=== PATIENT | male | born 1935 | race Caucasian/White ===

== ENCOUNTER → 2020-09-03 11:20 | Outpatient (BNVA) | payer MEDICARE, SELFPAY | PROVIDERS: PCP Family Medicine; Visit Provider Nurse Practitioner Family | DX: R19.8 Other specified symptoms and signs involving the digestive system and abdomen (principal); R19.7 Diarrhea, unspecified | CPT/HCPCS: 83630; 87506 ==

== ENCOUNTER 2020-10-06 09:50 | Outpatient (CLI) | payer MEDICARE, SELFPAY ==
--- NOTE | 2020-10-06 10:45 | FL_ITS ---
WS: [id number] Exam: FL barium enema [id number] Date/Time of Exam: 10/06/2020 11:39 AM Reason For Exam: R19.4 - Change in bowel habit Preliminary survey of the abdomen shows no acute process. 1 x 3 mm calcification superimposing left k idney that could represent a small renal stone. The colon fills to the cecum. Barium could not be refluxed into the terminal ileum. There was no sign of colonic mass or constricting lesion. There is mild diverticulosis and spasm of the sigmoid colon. The haustral pattern is otherwise well maintained. The appendix fills with barium. The colon is not displaced. FL/FL barium enema [id number] IMPRESSION: 1. No sign of colonic mass or constricting lesion. 2. Mild diverticulosis and spasm of the sigmoid colon. 3. The appendix fills.
== END 2020-10-06 09:51 | disposition home or self-care (01) ==
PROVIDERS: PCP Family Medicine; Visit Provider Surgery
DX: R19.4 Change in bowel habit (principal); K57.90 Diverticulosis of intestine, part unspecified, without perforation or abscess without bleeding; K58.9 Irritable bowel syndrome, unspecified
CPT/HCPCS: 74270

== ENCOUNTER → 2022-06-21 13:24 | Outpatient (BNVA) | payer MEDICARE, SELFPAY | PROVIDERS: PCP Family Medicine; Visit Provider Internal Medicine Cardiovascular Disease | DX: R55 Syncope and collapse (principal); I73.9 Peripheral vascular disease, unspecified; R03.0 Elevated blood-pressure reading, without diagnosis of hypertension; R42 Dizziness and giddiness | CPT/HCPCS: 93270; 99213; 99214 ==

== ENCOUNTER → 2022-06-23 13:59 | Outpatient (BNVA) | payer MEDICARE, SELFPAY | PROVIDERS: PCP Family Medicine; Visit Provider Family Medicine | DX: G56.02 Carpal tunnel syndrome, left upper limb (principal); M25.532 Pain in left wrist; N40.1 Benign prostatic hyperplasia with lower urinary tract symptoms; M48.061 Spinal stenosis, lumbar region without neurogenic claudication; R39.11 Hesitancy of micturition; M79.605 Pain in left leg; R29.898 Other symptoms and signs involving the musculoskeletal system | CPT/HCPCS: 73110 ==

== ENCOUNTER → 2022-08-26 12:10 | Outpatient (BNVA) | payer MEDICARE, MEDICAID, SELFPAY | PROVIDERS: PCP Family Medicine; Referring Provider Family Medicine; Visit Provider Specialist | DX: M48.061 Spinal stenosis, lumbar region without neurogenic claudication (principal); M48.02 Spinal stenosis, cervical region | CPT/HCPCS: 95910; 95912 ==

== ENCOUNTER 2022-10-21 06:00 | Outpatient (RCR) | payer MEDICARE, MEDICAID, SELFPAY | END 2022-11-09 23:59 | disposition home or self-care (01) | LOC: MPT 06:00 | PROVIDERS: PCP Family Medicine; Visit Provider Student in an Organized Health Care Education/Training Program | DX: M54.50 Low back pain, unspecified (principal) | CPT/HCPCS: 97110; 97140; 97162; G0283 ==

== ENCOUNTER 2022-11-01 11:35 | Emergency (ER) | payer MEDICARE, MEDICAID, SELFPAY ==
--- NOTE | 2022-11-01 11:45 | ECG_ITS ---
[facility] Test Date: 2022-11-01 Pat Name: Adam Monsalve Department: Room: Gender: Male Groundhand: : 1935 Requested By: Edwin Burns Order Number: [id number] Sully MD: Derek Alvarez M.D. Measurements Intervals [place] Rate: 94 P: 71 RI: 112 QRS: -89 QRSD: 101 T: 69 QT: 344 QTc: 430 Interpretive Statements SINUS RHYTHM WITH SHORT RI INTERVAL WITH OCCASIONAL ECTOPIC PREMATURE COMPLEXES INDETERMINATE AXIS NONSPECIFIC ST & T-WAVE ABNORMALITY INTERPRETATION BASED ON A DEFAULT AGE OF 40 YEARS Compared to ECG 06/16/2015 13:16:09 Short RI interval now present Indeterminate axis now present T-wave abnormality now present Electronically Signed On 11-01-2022 19:07:59 ASSOCIATE PROFESSOR OF COUNSELING by Derek Alvarez M.D. [email or web address].Spodly/store/NU/[id number] f
[2022-11-01 11:47] VITALS: BP 147/76; PULSE 94; RESP 16; TEMP 37.4; O2SAT 94
--- NOTE | 2022-11-01 11:49 | XR_ITS ---
WS: [id number] Exam: XR knee LT 3V* [id number] Date/Time of Exam: 11/01/2022 11:49 AM Reason For Exam: fall No acute fracture or dislocation. No joint effusion. 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 Mild c hondrocalcinosis of the lateral meniscus. XR/XR knee LT 3V* [id number] IMPRESSION: 1. No fracture or joint effusion. 2. Mild degenerative changes and osteopenia.
--- NOTE | 2022-11-01 11:50 | XR_ITS ---
WS: [id number] Exam: XR chest 1V portable [id number] Date/Time of Exam: 11/01/2022 11:50 AM Reason For Exam: chest pain No priors. The lungs are fully inflated and clear. Normal cardiomediastinal silhouette. No pleural effusions. Ray [place] structures are intact. There has been excision of the distal right clavicle. Rotator cuff anchorin g screws in the right humeral head. XR/XR chest 1V portable [id number] IMPRESSION: 1. No acute cardiopulmonary finding.
--- NOTE | 2022-11-01 12:08 | ED_ITS ---
HPI - Fall General: Chief Complaint: Fall Stated Complaint: fall/chest pain Time Seen by Provider: 11/01/22 11:49 Source: patient Mode of arrival: ambulatory History of Present Illness: 87-year-old male comes in complaining of fall 1 week ago pain in his left knee. He also has some chest discomfort radiating to his back is worse with movement. Has increasing pain denies abdominal or chest pain no dysuria urgency or frequency. MD complaint: fall Onset (ago): day(s) Fall from: standing Place fall occurred: home Loss of consciousness: None Prolonged down time: no Context: tripped/slipped Location of injury: head and back Location of injury - extremities: Left: knee Severity: moderate Associated symptoms-after fall: Denies abdominal pain, chest pain, confusion, difficulty walking, headache(s), hematuria, lightheadedness, neck pain, numbness, short of breath, vertigo or weakness Review of Systems Const: Denies: fever(s), chills, body aches, change in appetite, fatigue or malaise ENMT: Denies: throat pain, ear or mastoid pain, nasal discharge or nasal congestion Card: Denies: chest pain or lightheadedness Resp: Denies: dyspnea, productive cough or non-productive cough GI: Denies: abdominal pain, nausea or vomiting : Denies: hematuria Musc: Reports: back pain and extremity swelling (chronic); Denies: neck pain Skin/Breast: Denies: rash or pruritus Neuro: Denies: headache(s), difficulty walking, vertigo or confusion PFSH ED PFSH: Medical History Change in bowel habits Chronic fatigue Insomnia Spinal stenosis of lumbar region Surgical History H/O rotator cuff surgery RIGHT History of colonoscopy with polypectomy (~1997) Family History Denies family history of Diabetes CAD (coronary artery disease) Hyperlipidemia Cancer Hypertension Social History Smoking and tobacco status: current every day smoker cigarettes Packs smoked per day: 0.5 Alcohol intake: current Desire information about substance/drug rehabilitation?: No Current gender identity: Male Physical Exam Const: GENERAL APPEARANCE: cooperative and comfortable ORIENTATION/CONSCIOUSNESS: Yes awake, Yes oriented to person, Yes oriented to place and Yes oriented to time HENMT: COMMON NORMALS: normocephalic and hearing grossly normal bilaterally HEAD & SCALP: normocephalic Resp: COMMON NORMALS: normal respiratory effort, No retractions, No use of accessory muscles and clear to auscultation bilaterally AUSCULTATION: clear to auscultation bilaterally Cardio: COMMON NORMALS: regular rate, regular rhythm and No murmurs present (Cardio) RATE: regular rate RHYTHM: regular rhythm GI: COMMON NORMALS: Soft to palpation and No hepatosplenomegaly present AUSCULTATION: Yes normoactive bowel sounds PALPATION: Yes Soft to palpation, No Tenderness to palpation present (GI), No Guarding due to palpation present (GI) and Yes No hepatosplenomegaly present Extremity: COMMON NORMALS: normal to inspection, capillary refill normal, no clubbing, cyanosis or edema, no calf tenderness and no pedal edema Neuro: SENSORIUM/ORIENTATION: Yes oriented to person, Yes oriented to place and Yes oriented to time Skin: COMMON NORMALS: no rashes or lesions noted GENERAL SKIN EXAM: no rashes or lesions noted Course Vital Signs: Vital signs: Vital Signs Temperature 99.3 F 11/01/22 11:47 Pulse Rate 81 11/01/22 13:57 Respiratory Rate 16 11/01/22 13:57 Blood Pressure 127/87 11/01/22 13:57 Pulse Oximetry 100 11/01/22 13:57 MDM - Fall Medical Decision Making Labs and imaging reviewed. Old records reviewed as well patient has some spinal stenosis. No acute findings on imaging. Labs unremarkable. We will discharge patient home have him follow-up with primary care remaining outpatient MRI Medical Records I reviewed the patient's medical records. Lab Data I reviewed the patient's lab results. 11/01/22 12:09 11/01/22 12:09 Radiology Impressions Knee X-Ray 11/01/22 11:49 IMPRESSION: 1. No fracture or joint effusion. 2. Mild degenerative changes and osteopenia. Chest X-Ray 11/01/22 11:50 IMPRESSION: 1. No acute cardiopulmonary finding. Lumbar Spine X-Ray 11/01/22 12:17 IMPRESSION: 1. No acute fracture or malalignment. 2. Degenerative changes and mild scoliosis. Laboratory Results WBC 11.9 10^3/uL (4.0-10.0) H 11/01/22 12:09 RBC 4.80 10^6/uL (4.1-5.3) 11/01/22 12:09 Hgb 15.5 g/dL (11.7-16.6) 11/01/22 12:09 Hct 46.9 % (42.0-52.0) 11/01/22 12:09 MCV 97.7 fl (80-94) H 11/01/22 12:09 MCH 32.3 pg (28.0-34.0) 11/01/22 12:09 MCHC 33.0 g/dL (30.0-36.0) 11/01/22 12:09 RDW 12.6 % (12.1-15.1) 11/01/22 12:09 Plt Count 297 10^3/cmm (130-400) 11/01/22 12:09 MPV 8.9 fL (7.4-10.4) 11/01/22 12:09 Neut % (Auto) 81.4 % 11/01/22 12:09 Lymph % (Auto) 9.1 % 11/01/22 12:09 Bos[place] % (Auto) 7.6 % 11/01/22 12:09 Eos % (Auto) 0.3 % 11/01/22 12:09 Baso % (Auto) 0.4 % 11/01/22 12:09 Neut # (Auto) 9.70 10^3/uL (1.8-7.7) H 11/01/22 12:09 Lymph # (Auto) 1.1 10^3/uL (0.8-4.8) 11/01/22 12:09 [place] # (Auto) 0.9 10^3/uL (0.2-0.9) 11/01/22 12:09 Eos # (Auto) 0.0 10^3/uL (0.0-0.8) 11/01/22 12:09 Baso # (Auto) 0.1 10^3/uL (0.0-0.1) 11/01/22 12:09 Nucleated RBC % (auto) 0 % 11/01/22 12:09 Nucleated RBCs # 0.0 /100WBC 11/01/22 12:09 Sodium 138 mmol/L (136-145) 11/01/22 12:09 Potassium 4.1 mmol/L (3.5-5.1) 11/01/22 12:09 Chloride 98 mmol/L (98-107) 11/01/22 12:09 Carbon Dioxide 29 mmol/L (22-29) 11/01/22 12:09 Anion Gap 15.1 (5-19) 11/01/22 12:09 BUN 13 mg/dL (8-23) 11/01/22 12:09 Creatinine 1.0 mg/dL (0.7-1.2) 11/01/22 12:09 GFR Calculation Not Reportable 11/01/22 12:09 Glucose 137 mg/dL (65-115) H 11/01/22 12:09 Calculated Osmolality 288 mOsm/kg (285-295) 11/01/22 12:09 Calcium 9.6 mg/dL (8.5-10.5) 11/01/22 12:09 Troponin T Baseline 25 ng/L (0-15) H 11/01/22 12:09 Discharge Plan Discharge Patient Disposition: Home Clinical Impression: Spinal stenosis of lumbar region, Chronic back pain, Fall Condition: Stable Prescriptions: New diclofenac sodium 75 mg tablet,delayed release (DR/EC) 75 mg PO Q12H PRN (Reason: pain) Qty: 20 0RF Medrol (Remberto) 4 mg tablets,dose pack See Rx Instructions .ROUTE .COMPLEX Qty: 21 0RF Rx Instructions: orally per package directions No Action ascorbate calcium (vitamin C) 500 mg tablet 500 mg PO BID calcium carb-D3-mag [id number] [phone] hm-ysqh-pr-mg tablet 1 tab PO DAILY Rx Instructions: administer with a meal alpha lipoic acid 200 mg capsule 200 mg PO DAILY omega-3 fatty acids [Fish Oil Concentrate] 1,000 mg capsule 1,000 mg PO BID arginine (L-arginine) 500 mg capsule 500 mg PO DAILY tamsulosin 0.4 mg capsule 0.4 mg PO BID Rx Instructions: for urination Discharge Orders: Discharge ED (Routine); Ordered 11/01/22 Ordered By: Edwin Medeiros Referrals: Aravind Martin [Primary Care Provider] - Discharge Diet: Usual diet Discharge Activity: Limit activity as instructed Patient Instructions: Opioid Safety, Pain Management Activity Restrictions/Additional Instructions: You were seen today after a fall plain x-rays did not show any acute fractures no other significant findings on exam. I suspect that your back pain is an acute exacerbation of your chronic problem use the medications given today and follow-up with your primary care doctor continue physical therapy. Coding Level of Care Code ED Air Valve Repairer for Fátima Matta
[2022-11-01 12:16] LABS: Basophils # 0.1 10^3/uL (0.0-0.1); Basophils % 0.4 %; Eosinophils % 0.3 %; Hematocrit 46.9 % (42.0-52.0); Hemoglobin 15.5 g/dL (11.7-16.6); Lymphocytes # 1.1 10^3/uL (0.8-4.8); Lymphocytes % 9.1 %; Mean Corpuscular Hemoglobin 32.3 pg (28.0-34.0); Mean Corpuscular Volume 97.7 fl (80-94); Mean Platelet Volume 8.9 fL (7.4-10.4); Monocytes # 0.9 10^3/uL (0.2-0.9); Monocytes % 7.6 %; Neutrophils % 81.4 %; Nucleated Red Blood Cells % 0 %; Platelet Count 297 10^3/cmm (130-400); Red Cell Distribution Width 12.6 % (12.1-15.1); White Blood Count 11.9 10^3/uL (4.0-10.0)
--- NOTE | 2022-11-01 12:17 | XR_ITS ---
WS: [id number] Exam: XR lumbar spine 2-3V* [id number] Date/Time of Exam: 11/01/2022 12:17 PM Reason For Exam: fall low back pain No acute fracture or dislocation noted. Spondylosis. Degenerative facet change at L4-5 and L5-S1. Mil d levoscoliosis. Osteopenia. XR/XR lumbar spine 2-3V* [id number] IMPRESSION: 1. No acute fracture or malalignment. 2. Degenerative changes and mild scoliosis.
[2022-11-01 12:35] LABS: Troponin(5th) Baseline 25 ng/L (0-15)
[2022-11-01 12:36] LABS: Anion Gap 15.1 (5-19); Blood Urea Nitrogen 13 mg/dL (8-23); Calcium 9.6 mg/dL (8.5-10.5); Carbon Dioxide 29 mmol/L (22-29); Chloride 98 mmol/L (98-107); Glucose 137 mg/dL (65-115); Osmolality Calculated 288 mOsm/kg (285-295); Potassium 4.1 mmol/L (3.5-5.1); Sodium 138 mmol/L (136-145)
[2022-11-01 12:56] VITALS: BP 127/87; PULSE 81; O2SAT 100
--- NOTE | 2022-11-01 13:50 | ECG_ITS ---
[facility] Test Date: 2022-11-01 Pat Name: Adam Monsalve Department: Room: Gender: Male Insurance Specialist: : 1935 Requested By: Edwin Burns Order Number: [id number] Sully MD: Derek Alvarez M.D. Measurements Intervals [place] Rate: 69 P: 66 [place]: 127 QRS: 54 QRSD: 89 T: 76 QT: 371 QTc: 400 Interpretive Statements SINUS RHYTHM Compared to ECG 06/16/2015 13:16:09 No significant changes Electronically Signed On 11-01-2022 19:17:13 HOSPITALITY JOB TITLES by Derek Alvarez M.D. [email or web address]/OM/[id number]
[2022-11-01 13:57] VITALS: BP 127/87; PULSE 81; RESP 16; O2SAT 100
== END 2022-11-01 14:02 | disposition home or self-care (01) ==
PROVIDERS: Emergency Provider Family Medicine; PCP Family Medicine
DX: M48.061 Spinal stenosis, lumbar region without neurogenic claudication (principal); G89.29 Other chronic pain; F17.210 Nicotine dependence, cigarettes, uncomplicated; W19.XXXA Unspecified fall, initial encounter
CPT/HCPCS: 71045; 72100; 73562; 80048; 84484; 85025; 93005; 99285

== ENCOUNTER 2022-11-10 06:00 | Outpatient (RCR) | payer MEDICARE, MEDICAID, SELFPAY | END 2022-12-10 23:59 | disposition home or self-care (01) | LOC: MPT 06:00 | PROVIDERS: PCP Family Medicine; Visit Provider Student in an Organized Health Care Education/Training Program | DX: M54.50 Low back pain, unspecified (principal) | CPT/HCPCS: 97110; 97140; G0283 ==

== ENCOUNTER → 2022-11-23 12:55 | Outpatient (BNVA) | payer MEDICARE, MEDICAID, SELFPAY | PROVIDERS: PCP Family Medicine; Referring Provider Family Medicine; Visit Provider Orthopaedic Surgery | DX: M48.061 Spinal stenosis, lumbar region without neurogenic claudication (principal); M43.9 Deforming dorsopathy, unspecified; M54.6 Pain in thoracic spine | CPT/HCPCS: 72070; 72110; 99204 ==

== ENCOUNTER 2022-11-29 13:15 | Outpatient (CLI) | payer MEDICARE, MEDICAID, SELFPAY ==
--- NOTE | 2022-11-29 13:45 | MR_ITS ---
WS: [id number] MRI LUMBAR SPINE NONCONTRAST TECHNIQUE: Sagittal T1, T2 and STIR imaging. Axial T1 and T2 imaging. CLINICAL INFORMATION: stenosis COMPARISON: None. FINDINGS: Acute compression with anterior wedging at T7 as described on the thoracic spine MRI. Markedly enlarg ed prostate measuring 4.6 x 4.1 CM. Recommend correlation PSA. L1-L2: Mild facet arthropathy. Minimal disc bulging. Spinal canal and foramen are patent. L2-L3: Mild annular bulging. Impingement traversing RIGHT L3 nerve root in the subarticular recess. M ild facet arthropathy. RIGHT foraminal protrusion with mild RIGHT foraminal narrowing. Mild central c anal stenosis. Mild facet arthropathy. L3-L4: Mild annular bulging with moderate to severe central canal stenosis. Impingement traversing RI GHT greater than LEFT L4 nerve roots. Mild facet arthropathy. Moderate RIGHT and mild LEFT foraminal narrowing. L4-L5: Mild disc bulging with moderate central canal stenosis. Impingement traversing L5 nerve roots bilaterally. Mild facet arthropathy. L5-S1: Mild disc osteophyte complex. Impingement traversing LEFT S1 nerve root in the subarticular re cess. Moderate facet arthropathy. Moderate LEFT foraminal narrowing. RIGHT foramen is patent. Visualized pelvic bony structures: Normal. Paravertebral soft tissues: Normal. MR/MR lumbar spine wo con* [id number] IMPRESSION: 1. Mild lumbar curve. No acute compression lumbar spine. 2. Moderate to severe central canal stenosis L3-L4 and L4-L5 with impingement on the subarticular recess bilaterally. Central canal stenosis has progressed a t L3-L4 and L4-L5 compared to previous. 3. Disc bulging L2-L3 with impingement RIGHT subarticular recess and traversin g RIGHT L3 nerve root appears slightly progressed. Mild central canal stenosis slightly progressed. 4. Mild to moderate foraminal narrowing RIGHT L2-L3, RIGHT L3-L4, bilateral L4 -L5 and LEFT L5-S1. 5. Disc bulging L5-S1 impinges the LEFT S1 nerve root in the subarticular rece ss. 6. Mild L4-L5 and L5-S1 facet synovitis. 7. Markedly enlarged prostate measuring 4.6 x 4.1 CM. Recommend correlation PS A.
--- NOTE | 2022-11-29 14:30 | MR_ITS ---
WS: [id number] MRI THORACIC SPINE WITHOUT CONTRAST TECHNIQUE: Sagittal T1, T2 and STIR imaging. Axial T2 imaging. Noncontrast imaging obtained. CLINICAL INFORMATION: compression fracture COMPARISON: None. FINDINGS: Mild thoracic kyphosis. Mild thoracic curve. Anterior wedging T7 with loss of approximately 40 percen t vertebral body height anteriorly. Associated edema consistent with acute compression. No retropulsi on. Mild disc bulging T7-T8 with a tiny central protrusion. Tiny RIGHT pericentral protrusion T9-T10. No other acute compression fractures. Normal caliber thoracic aorta. Adrenal glands are normal. Bilat eral thyroid nodules largest in the RIGHT measuring 1.5 cm. Mild spondylitic changes cervical spine. Normal paravertebral soft tissues. Moderate facet arthropathy lower thoracic spine. MR/MR thoracic spin wo con* [id number] IMPRESSION: Compression with anterior wedging T7 with loss of approximately 40 percent vert ebral body height anteriorly. Associated edema consistent with acute compressio n. No retropulsion.
== END 2022-11-29 13:16 | disposition home or self-care (01) ==
LOC: RAD 13:23
PROVIDERS: PCP Family Medicine; Visit Provider Orthopaedic Surgery
DX: M48.061 Spinal stenosis, lumbar region without neurogenic claudication (principal); M48.54XA Collapsed vertebra, not elsewhere classified, thoracic region, initial encounter for fracture; N40.0 Benign prostatic hyperplasia without lower urinary tract symptoms; M65.88 Other synovitis and tenosynovitis, other site; M51.26 Other intervertebral disc displacement, lumbar region
CPT/HCPCS: 72146; 72148

== ENCOUNTER → 2022-12-07 13:45 | Outpatient (BNVA) | payer MEDICARE, MEDICAID, SELFPAY | PROVIDERS: PCP Family Medicine; Visit Provider Orthopaedic Surgery | DX: M48.062 Spinal stenosis, lumbar region with neurogenic claudication (principal); M48.54XA Collapsed vertebra, not elsewhere classified, thoracic region, initial encounter for fracture | CPT/HCPCS: 99214 ==

== ENCOUNTER 2022-12-20 05:25 | Day surgery (SDC) | payer MEDICARE, MEDICAID, SELFPAY ==
[2022-12-15 13:07] VITALS: BMI 20.7
--- NOTE | 2022-12-15 13:29 | ANES.PREANE2 ---
Pre-Anesthetic Assessment Height/Weight: Height 1.6 m Weight 53.07 kg Operation Date: 12/20/22 09:40 Proposed Procedures p Kyphoplasty: T7 21255,: Decompression L3/4 92918, L4/5 33650(Not Applicable) - DO isabella Washington Lumbar Spine Decompression(Not Applicable) - Emanuel Rivera DO Familial anesthetic complications: None Social Tobacco and No alcohol Exam alert, oriented x 3, clear to auscultation bilaterally and regular rate & rhythm Airway Mallampati: Class II Dentition: false Pulmonary Chronic cough for months now, coughs up minimal white sputum ( less than 1/4 of tsp ) - hasn't been worked up. But states no breathing issues, no fevers. He said he had this several years ago too after he quit smoking. Suspect smoking related. Consider obtaining CXR morning of surgery to make sure no infection. CV/HEM Peripheral Vascular Disease (due to brown reculse bite) None reported GI IBS Metabolic None reported Musc/skel None reported Neuropsych None reported Anesthetic Plan ASA status: 2 Anesthesia: General Risk of > 500 ml blood loss (7ml/kg in children): No Medications/Allergies Home Medications Medication Instructions Recorded Confirmed Last Taken Type alpha lipoic acid 200 mg capsule 200 mg PO DAILY 04/22/21 12/15/22 11/01/22 History arginine (L-arginine) 500 mg 500 mg PO DAILY 04/22/21 12/15/22 11/01/22 History capsule ascorbate calcium (vitamin C) 500 500 mg PO BID 04/22/21 12/15/22 11/01/22 History mg tablet calcium carb-vit O2-chhjygwvp-wdhe 1 tab PO DAILY 04/22/21 12/15/22 11/01/22 History 333 mg-200 unit-133 mg-5 mg tablet omega-3 fatty acids 1,000 mg 1,000 mg PO BID 04/22/21 12/15/22 11/01/22 History capsule (Fish Oil Concentrate) diclofenac sodium 75 mg 75 mg PO Q12H PRN pain #20 tabs 11/01/22 12/15/22 Unknown Rx tablet,delayed release methylprednisolone 4 mg tablets in See Rx Instructions PO .COMPLEX 11/01/22 12/15/22 Unknown Rx a dose pack (Medrol (Remberto)) #21 ea tamsulosin 0.4 mg capsule 0.4 mg PO BID 11/01/22 12/15/22 11/01/22 History hydrocodone 5 mg-acetaminophen 325 1 tab PO Q8H PRN pain 7 days #21 12/07/22 12/15/22 Unknown Rx mg tablet tabs Allergies Allergy/AdvReac Type Severity Reaction Status Date / Time No Known Allergies Allergy Verified 12/07/22 14:58 PFSH Anesthesia Medical History Change in bowel habits Chronic fatigue Insomnia Spinal stenosis of lumbar region Surgical History H/O rotator cuff surgery RIGHT History of colonoscopy with polypectomy (~1997) Family History Denies family history of Diabetes CAD (coronary artery disease) Hyperlipidemia Cancer Hypertension Social History Smoking and tobacco status: current every day smoker cigarettes Packs smoked per day: 0.5 Alcohol intake: current Desire information about substance/drug rehabilitation?: No Current gender identity: Male Data Anesthesia Cardiac Studies: Cardiac Event Monitor 06/21/22
[2022-12-20] MEDS: sodium chloride 0.9% 1,000 ML 30 ML IV (06:18)
--- NOTE | 2022-12-20 06:24 | XR_ITS ---
WS: [id number] EXAMINATION: XR chest 1V portable [id number] REASON FOR EXAM: cough COMPARISON: None available. ORDER DATE: 12/20/2022 6:44 AM TECHNIQUE: A single, portable frontal chest x-ray was obtained. X-RAY FINDINGS: The lungs are clear. Pleural spaces are clear. No pleural effusions or pneumothorax. Cardiomediastinal silhouette is normal except for atherosclerotic aortic change. No evidence for pulm onary edema. Soft tissue and osseous structures are unremarkable except for distal right clavicle osteotomy and ro tator cuff anchors from prior surgery. No tubes or lines are present. XR/XR chest 1V portable [id number] IMPRESSION: Unremarkable frontal portable chest x-ray.
--- NOTE | 2022-12-20 06:30 | W.PM.OPSUD ---
Surgery/Procedure H&P Update DATE OF PROCEDURE: December 20, 2022 DATE H&P PERFORMED: 12/07/22 H&P UPDATE INFORMATION: I have reviewed H&P completed within last 30 days, I have examined patient prior to procedure and No changes to prior documentation PREOP DIAGNOSIS: T7 compression fracture, lumbar stenosis with neurogenic claudication PLANNED PROCEDURE: Operation Date: 12/20/22 07:00 Proposed Procedures p Kyphoplasty: T7 32092,: B Decompression L3/4 17767, L4/5 19113(Not Applicable) - Emanuel Rivera DO s Lumbar Spine Decompression(Not Applicable) - Emanuel Rivera DO
--- NOTE | 2022-12-20 06:33 | P.ANESUD_ITS ---
Pre-Anesthetic Update Pre-Anesthetic Assessment: Date of Surgery/Procedure: 12/20/22 Preop Glo gnosis: T7 compression fracture, lumbar stenosis with neurogenic claudication Proposed Procedure: Operation Date: 12/20/22 07:00 Proposed Procedures p Kyphoplasty: T7 54567,: B Decompression L3/4 02069, L4/5 99803(Not Applicable) - Emanueldre Rivera, DO s Lumbar Spine Decompression(Not Applicable) - Emanueldre Rivera, DO Any changes to Pre-Anesthetic Assessment?: No Last Intake: Intake Last Liquid Date 12/19/22 Last Liquid Time 21:30 Last Solid Date 12/19/22 Last Solid Time 21:30 Vitals: Oxygen Delivery Me thod 12/20/22 06:08 Exam: Pre-Anes Outpt Exam: alert, oriented x 3, clear to auscultation bilaterally and regular rate & rhythm Cardiac Studies: Cardiac Event Monitor 06/21/22
[2022-12-20] MEDS: ceFAZolin 2,000 MG in sodium chloride 0.9% (plus) 50 ML 100 MG IV (07:05)
[2022-12-20] MEDS: lidocaine-epi 2% 20 mL INJ INJECTION ×2 (07:34→07:43)
[2022-12-20] MEDS: iohexol 350 mg/mL 100 mL Btl 8 ML XX (07:40)
--- NOTE | 2022-12-20 09:02 | XR_ITS ---
WS: [id number] EXAMINATION: XR lumbar spine 1V [id number] L-SPINE : 5 views REASON FOR EXAM: OR PICS COMPARISON: None available. ORDER DATE: 12/20/2022 9:02 AM FINDINGS: There are post vertebroplasty change in one of the midthoracic vertebra. Localization with a surgical instrument is noted at the L4 level on a few C-arm views. XR/XR lumbar spine 1V 23004 IMPRESSION: Total fluoroscopy time 70 seconds
[2022-12-20 09:16] VITALS: BP 102/58; PULSE 70; RESP 17; TEMP 36.1; O2SAT 100
[2022-12-20 09:20] VITALS: BP 111/57; PULSE 67; RESP 15; O2SAT 100
[2022-12-20 09:25] VITALS: BP 103/51; PULSE 68; RESP 16; O2SAT 100
[2022-12-20 09:30] VITALS: BP 95/56; PULSE 66; RESP 19; O2SAT 100
--- NOTE | 2022-12-20 09:33 | P.OP_ITS ---
Operative Report Date of procedure: December 20, 2022 Pre-op diagnosis: Preop Diagnosis T7 wedge osteoporotic traumatic compression fracture, lumbar stenosis with neurogenic claudication Post-op diagnosis: same Procedure done: 1. T7 Kyphoplasty 2. L3/4 laminectomy with partial facetectomy 3. L4/5 laminectomy with partial facetectomy Surgeon: Emanuel Rivera Industrial Controller: none Estimated blood loss (mL): 25 Complications: dural tear L4/5 level patched Procedure: 1. T7 Kyphoplasty 2. L3/4 laminectomy with partial facetectomy 3. L4/5 laminectomy with partial facetectomy Patient is brought t the operative suite placed in the prone position orders and pressure well-padded. Attention was first brought to doing the T7 kyphoplasty. A biplanar fluoroscopy was brought in pedicles were lined up in the T7 vertebrae was identified. The skin incision was made over the left pedicle. The awl was inserted the drill was then inserted then the balloon was inserted into the vertebrae T7. Once in the center position of the vertebrae. Then the balloon was inflated deflated and then cement was injected into the vertebrae had good fill the vertebrae AP lateral fluoroscopy ensure that the cement was in good position. Wound was irrigated and closed with nylon suture. Was brought to performing the laminectomies. A skin incision is made over the L3/4 level. This is confirmed under c-arm guidance. A series of dilators are passed and the tubular retractor is docked on the L3 lamina. A bovie is used to clear the soft tissue off the lamina and the L 3/4 facet joint. A high speed antelmo is then used to perform the laminectomy and take down the medial aspect of the L 3/4 facet joint. A kerrison rongeure was then used to take down the remaining lamina and smooth the edged of the laminectomy up to the point where the ligamentum flavum attaches. Attention was then brought to the medial aspect of the facet joint. The remaining medial aspect of the superior and inferior aspect of the facet joint were taken down with the kerrison from the pedicle of L3 to L 4. The facet joint had significant hypertrophy. Attention was then brought to the Ligamentum Flavum. The ligament was taken down from the lamina of L3 to L4 and out medially to the remaining facet joint. The ligament was thick. The dura was then exposed. The dura was in good repair. The L3 nerve was then traced with a curette out the L3/4 foramen and found to be adequately decompressed. The L4 nerve was traced with a curette around the L4 pedicle. The lateral recess was opened with a kerrison helping to further decompress the L4 nerve. The tubular retractor was then tilted to the contralateral side. The bovie was used to take down the soft tissue on the spinous process. The high speed antelmo was used to take down the spinous process and then the contralateral lamina of L3. The kerrison rongeur was used to take down the remaining lamina to the point where the ligamentum flavum attached and the ligamentum flavum was taken down from L3 to L4. The kerrison rongeur was then used to reach across and take down the medial aspect of the contralateral L3/4 facet joint.The currete was used to trace the contralateral L3 nerve out the L3/4 foramen to make sure it was decompressed adequatesly and the L4 was traced around the L4 pedicle. The lateral recess was opened further with the kerrison to ensure the L4 is adequately decompressed. Wound is then irrigated copiously with saline and surgiflo is used to stop any bleeding. The tubular retractor is removed and the A skin incision is made over the L4/5 level. This is confirmed under c-arm guidance. A series of dilators are passed and the tubular retractor is docked on the L4 lamina. A bovie is used to clear the soft tissue off the lamina and the L 4/5 facet joint. A high speed antelmo is then used to perform the laminectomy and take down the medial aspect of the L 4/5 facet joint. A kerrison rongeure was then used to take down the remaining lamina and smooth the edged of the laminectomy up to the point where the ligamentum flavum attaches. Attention was then brought to the medial aspect of the facet joint. The remaining medial aspect of the superior and inferior aspect of the facet joint were taken down with the kerrison from the pedicle of L4 to L 5. The facet joint had significant hypertrophy. Attention was then brought to the Ligamentum Flavum. The ligament was taken down from the lamina of L4 to L5 and out medially to the remaining facet joint. The ligament was thick. The dura was then exposed. The dura was in good repair. The L4 nerve was then traced with a curette out the L4/5 foramen and found to be adequately decompressed. The L5 nerve was traced with a curette around the L5 pedicle. The lateral recess was opened with a kerrison helping to further decompress the L5 nerve. The tubular retractor was then tilted to the contralateral side. The bovie was used to take down the soft tissue on the spinous process. The high speed antelmo was used to take down the spinous process and then the contralateral lamina of L4. The kerrison rongeur was used to take down the remaining lamina to the point where the ligamentum flavum attached and the ligamentum flavum was taken down from L4 to L5. The kerrison rongeur was then used to reach across and take down the medial aspect of the contralateral L4/5 facet joint.The currete was used to trace the contralateral L4 nerve out the L4/5 foramen to make sure it was decompressed adequatesly and the L5 was traced around the L5 pedicle. The lateral recess was opened further with the kerrison to ensure the L5 is adequately decompressed. Patient did get a dural tear on the L4-5 level. Patch was placed there was no CSF leaking and the DuraSeal was also placed. Wound is then irrigated copiously with saline and surgiflo is used to stop any bleeding. The tubular retractor is removed and the wound is closed with vicryl and monocryl suture. Glue is then used to protect the wound. A sterile dressing is then placed. Patient was then placed in the supine position and transferred to the PACU in stable condition.
[2022-12-20 09:40] VITALS: BP 126/67; PULSE 67; RESP 16; TEMP 36.4; O2SAT 96
[2022-12-20 10:02] VITALS: BP 106/70; PULSE 67; RESP 16; O2SAT 96
--- NOTE | 2022-12-20 10:21 | PC.NURSE ---
Pt unsteady gait with ambulation. Obtained verbal order from Dr Rivera for walker. Order faxed to HOME per family request. Education provided to family and patient due to instability with ambulation.
--- NOTE | 2022-12-20 14:11 | ANE.PACU2 ---
Inpatient post-anesthesia follow up: Airway intact: Yes Vital signs: Temperature 97.5 F Pulse Rate 67 Respiratory Rate 16 Blood Pressure 106/70 Pulse Oximetry 96 Oxygen Delivery Me thod Room Air Oxygen Flow Rate 6 Fraction of Inspir ed Oxygen Hydration adequate: Yes Nausea and vomiting: No Pain level: 1 Mental status: Baseline
== END 2022-12-20 10:30 | disposition home or self-care (01) ==
PROVIDERS: PCP Family Medicine; Visit Provider Orthopaedic Surgery
PROC: (CPT 22513; principal; 2022-12-20 07:00)
PROC: (CPT 63005; 2022-12-20 07:00)
DX: M48.062 Spinal stenosis, lumbar region with neurogenic claudication (principal); S22.060A Wedge compression fracture of T7-T8 vertebra, initial encounter for closed fracture; X58.XXXA Exposure to other specified factors, initial encounter; F17.210 Nicotine dependence, cigarettes, uncomplicated
CPT/HCPCS: 22513; 63047; 63048; 71045; 72020; 72074; 76000; J0690; J1100; J2370; J2405; J2704; J2710; J3010; J3490; J7030; Q9967

== ENCOUNTER 2022-12-22 20:12 | Emergency (ER) | payer MEDICARE, MEDICAID, SELFPAY ==
[2022-12-22] VITALS (7 sets, daily range): BP systolic 127–183; BP diastolic 65–102; PULSE 73–86; RESP 16; TEMP 36.9; O2SAT 90–93; BMI 21.2
--- NOTE | 2022-12-22 21:11 | W.ED.BACK ---
HPI - Back Pain/Injury General: Chief Complaint: Back Pain/Injury Stated Complaint: BACK PAIN Time Seen by Provider: 12/22/22 20:21 Source: patient and family Mode of arrival: EMS Limitations: no limitations History of Present Illness: Patient was transported by EMS to the emergency department today because of concerns about becoming more distended decreased bowel movement decreased urine output over the last 2 to 3 days. He has not had a concomitant decreased appetite. No fevers or chills. No weakness numbness or loss of lower extremity function. He had a recent lumbar decompression as well as a kyphoplasty done at this facility. Pertinent past history: back surgery Associated symptoms: Deny chills, fever(s), nausea or vomiting Review of Systems Const: Denies: fever(s), chills or body aches Eyes: Denies: change in vision ENMT: Denies: throat pain or odynophagia Card: Denies: chest pain, palpitations or irregular heart rhythm Resp: Denies: dyspnea, productive cough or non-productive cough GI: Reports: constipation; Denies: nausea, vomiting or diarrhea : Reports: difficulty urinating and oliguria Musc: Denies: neck pain, back pain, extremity pain or extremity swelling Skin/Breast: Denies: rash or pruritus Neuro: Denies: headache(s), numbness in extremities or weakness in extremities PFSH ED PFSH: Medical History Change in bowel habits Chronic fatigue Insomnia Spinal stenosis of lumbar region Surgical History H/O rotator cuff surgery RIGHT History of colonoscopy with polypectomy (~1997) Family History Denies family history of Diabetes CAD (coronary artery disease) Hyperlipidemia Cancer Hypertension Social History Smoking and tobacco status: current every day smoker cigarettes Packs smoked per day: 0.5 Alcohol intake: current Desire information about substance/drug rehabilitation?: No Current gender identity: Male Physical Exam Narrative: EXAM NARRATIVE: Is alert. He answers questions appropriately. Const: COMMON NORMALS: no acute distress and patient oriented x3 GENERAL APPEARANCE: cooperative NUTRITIONAL APPEARANCE: thin ORIENTATION/CONSCIOUSNESS: Yes awake HENMT: COMMON NORMALS: normocephalic, Normal nasal mucous membranes and turbinates present and moist oral mucous membranes HEAD & SCALP: normocephalic NOSE: Normal nasal mucous membranes and turbinates present Eye: COMMON NORMALS: Equal, round and reactive pupils present, EOMs intact bilaterally and conjunctivae normal CONJUNCTIVA: Yes conjunctivae normal PUPIL: Yes Equal, round and reactive pupils present Neck/C-Spine: COMMON NORMALS: full ROM, no JVD and No carotid bruits Chest: COMMONS NORMALS: normal inspection of the chest Resp: COMMON NORMALS: normal respiratory effort, No retractions, No use of accessory muscles and clear to auscultation bilaterally AUSCULTATION: clear to auscultation bilaterally Cardio: COMMON NORMALS: no JVD, regular rate, regular rhythm, No murmurs present (Cardio) and Peripheral pulses 2+ throughout RATE: regular rate RHYTHM: regular rhythm PERIPHERAL PULSES: Peripheral pulses 2+ throughout GI: PALPATION: Yes Bladder palpation abnormal OTHER: Normal examination reveals distendelower abdomen from the symphysis pubis to the umbilicus. This area is tympanitic to percussion. There is no rebound or guarding on his abdominal examination. : BLADDER/KIDNEY EXAM: Yes Bladder palpation abnormal Back/Pelvis: OTHER: Examination of his back reveals no erythema no tenderness. Removal of the is dressing over his surgical site reveals no evidence of bleeding erythema drainage etc. Extremity: NARRATIVE EXTREMITY EXAM: He has a slight amount of soft tissue edema to both lower extremities. No calf tenderness. No erythema. He has intact sensation and motor function distally. Neuro: COMMON NORMALS: patient oriented x3, moves all extremities and deep tendon reflexes 2+ bilaterally Psych: COMMON NORMALS: mental status grossly normal Skin: COMMON NORMALS: no rashes or lesions noted and turgor normal GENERAL SKIN EXAM: no rashes or lesions noted and turgor normal Course Reevaluation(s): Reevaluation #1: Portable ultrasound was used to visualize urinary bladder which was noted to be markedly distended with what appeared to be clear fluid measuring an estimated approximately 6 to 700 mL. Time: 21:17 Reevaluation #2: Patient had a Monzon placed without difficulty and returned 700 mL of clear urine. He received a second liter of fluids. I discussed options to include continued observation overnight, discharged to home with continued oral hydration and close follow-up. They apparently have a appointment in command center officer with Dr. Rivera for follow-up. My plan is to leave his Monzon in situ for 48 hours and then have him remove it at home. I reviewed that procedure with both he and his his daughter and he was very comfortable with the plan as he is done that previously. No evidence of infection either of his wound site and or urine at this time but we will culture his urine to ensure there is no occult infection. He does have hematuria noted on his urinalysis but this is likely due to his bladder distention and subsequent Monzon placement and not likely indicative of infection. Time: 22:46 Vital Signs: Vital signs: Vital Signs Temperature 98.4 F 12/22/22 20:14 Pulse Rate 73 12/22/22 21:41 Respiratory Rate 16 12/22/22 22:04 Blood Pressure 155/77 12/22/22 22:04 Pulse Oximetry 91 12/22/22 22:04 Oxygen Delivery Me thod Room Air 12/22/22 21:41 MDM - Back Pain/Injury Medical Decision Making 87-year-old gentleman who is status post lumbar decompression as well as a kyphoplasty. He has subsequently developed urinary retention over the last several days which is also resulted in a obstipation constipation issue. Ultrasound of the his urinary bladder CT revealed significant distention and a Monzon was placed without difficulty. He also had evidence of volume depletion likely due to his decreased oral intake due to his bladder distention. He was rehydrated with 2 L of fluid in the emergency department. No evidence of acute infection or other concerning findings at this time. Again has bladder retention is likely postoperatively related and extremely unlikely to be related to his surgery i.e. nerve root or cauda equina compression etc. He has intact perineal sensation and no evidence of loss of sphincter tone etc. He is being discharged to home with close follow-up. Both he and his daughter were appreciative of our care evaluation and care. Labs I reviewed the patient's lab results. 12/22/22 19:39 12/22/22 19:39 Laboratory Results WBC 12.5 10^3/uL (4.0-10.0) H 12/22/22 19:39 RBC 5.11 10^6/uL (4.1-5.3) 12/22/22 19:39 Hgb 15.8 g/dL (11.7-16.6) 12/22/22 19:39 Hct 48.3 % (42.0-52.0) 12/22/22 19:39 MCV 94.5 fl (80-94) H 12/22/22 19:39 MCH 30.9 pg (28.0-34.0) 12/22/22 19:39 MCHC 32.7 g/dL (30.0-36.0) 12/22/22 19:39 RDW 12.9 % (12.1-15.1) 12/22/22 19:39 Plt Count 288 10^3/cmm (130-400) 12/22/22 19:39 MPV 9.5 fL (7.4-10.4) 12/22/22 19:39 Neut % (Auto) 78.2 % 12/22/22 19:39 Lymph % (Auto) 14.9 % 12/22/22 19:39 [place] % (Auto) 4.8 % 12/22/22 19:39 Eos % (Auto) 1.5 % 12/22/22 19:39 Baso % (Auto) 0.2 % 12/22/22 19:39 Neut # (Auto) 9.78 10^3/uL (1.8-7.7) H 12/22/22 19:39 Lymph # (Auto) 1.9 10^3/uL (0.8-4.8) 12/22/22 19:39 [place] # (Auto) 0.6 10^3/uL (0.2-0.9) 12/22/22 19:39 Eos # (Auto) 0.2 10^3/uL (0.0-0.8) 12/22/22 19:39 Baso # (Auto) 0.0 10^3/uL (0.0-0.1) 12/22/22 19:39 Nucleated RBC % (auto) 0 % 12/22/22 19: Nucleated RBCs # 0.0 /100WBC 12/22/22 19:39 Sodium 140 mmol/L (136-145) 12/22/22 19:39 Potassium 4.5 mmol/L (3.5-5.1) 12/22/22 19:39 Chloride 101 mmol/L (98-107) 12/22/22 19:39 Carbon Dioxide 27 mmol/L (22-29) 12/22/22 19:39 Anion Gap 16.5 (5-19) 12/22/22 19:39 BUN 24 mg/dL (8-23) H 12/22/22 19:39 Creatinine 1.4 mg/dL (0.7-1.2) H 12/22/22 19:39 GFR Calculation Not Reportable 12/22/22 19:39 Glucose 83 mg/dL (65-115) 12/22/22 19:39 Calculated Osmolality 293 mOsm/kg (285-295) 12/22/22 19:39 Calcium 9.4 mg/dL (8.5-10.5) 12/22/22 19:39 Total Bilirubin 0.6 mg/dL (0.15-1.2) 12/22/22 19:39 AST 24 U/L (0-40) 12/22/22 19:39 ALT 13 U/L (0-41) 12/22/22 19:39 Alkaline Phosphatase 93 U/L (40-130) 12/22/22 19:39 Total Protein 6.0 g/dL (6.6-8.7) L 12/22/22 19:39 Albumin 3.2 g/dL (3.5-5.2) L 12/22/22 19:39 Globulin 2.8 g/dL (1.3-4.6) 12/22/22 19:39 Urine Color Yellow (Yellow) 12/22/22 21:37 Urine Appearance Clear (CLEAR) 12/22/22 21:37 Urine pH 5 (5-7) 12/22/22 21:37 Ur Specific [place] 1.020 (1.005-1.030) 12/22/22 21:37 Urine Protein Neg (Negative) 12/22/22 21:37 Urine Glucose (UA) Norm (Normal) 12/22/22 21:37 Urine Ketones Negative (Negative) 12/22/22 21:37 Urine Blood 3+ (Negative) H 12/22/22 21:37 Urine Nitrate Negative (Negative) 12/22/22 21:37 Urine Bilirubin Neg (Negative) 12/22/22 21:37 Urine Urobilinogen Norm mg/dL (Negative) 12/22/22 21:37 Ur Leukocyte Esterase Negative (Negative) 04/12/23 21:37 Urine RBC 50-80 /hpf (0-2) H 12/22/22 21:37 Urine WBC 0-4 /hpf (0-5) H 12/22/22 21:37 Ur Squamous Epith Cells 0-4 /hpf (0-5) H 12/22/22 21:37 Amorphous Sediment Not Reportable 12/22/22 21:37 Urine Bacteria Trace /hpf (NONE) 12/22/22 21:37 Discharge Plan Discharge Patient Disposition: Home Clinical Impression: Acute urinary retention, Volume depletion Condition: Stable Prescriptions: No Action ascorbate calcium (vitamin C) 500 mg tablet 500 mg PO BID calcium carb-D3-mag [id number] [phone] [id number]-mg tablet 1 tab PO DAILY Rx Instructions: administer with a meal alpha lipoic acid 200 mg capsule 200 mg PO DAILY omega-3 fatty acids [Fish Oil Concentrate] 1,000 mg capsule 1,000 mg PO BID arginine (L-arginine) 500 mg capsule 500 mg PO DAILY hydrocodone-acetaminophen 5-325 mg tablet 1 tab PO Q8H PRN (Reason: pain) 7 Days Qty: 21 0RF oxycodone-acetaminophen 5-325 mg tablet 1 - 2 tab PO Q4H PRN (Reason: pain) 7 Days Qty: 40 0RF hydrocodone-acetaminophen 5-325 mg tablet 1 - 2 tab PO .Q4-6H Qty: 40 0RF tamsulosin 0.4 mg capsule 0.4 mg PO BID Rx Instructions: for urination diclofenac sodium 75 mg tablet,delayed release (DR/EC) 75 mg PO Q12H PRN (Reason: pain) Qty: 20 0RF methylprednisolone [Medrol (Remberto)] 4 mg tablets,dose pack See Rx Instructions .ROUTE .COMPLEX Qty: 21 0RF Rx Instructions: orally per package directions Discharge Orders: Discharge ED (Routine); Ordered 12/22/22 Ordered By: Tyrese Thornton Referrals: Aravind Martin [Primary Care Provider] - Discharge Diet: Advance as tolerated Discharge Activity: Limit activity as instructed Patient Instructions: Opioid Safety, Pain Management Activity Restrictions/Additional Instructions: As we discussed in the emergency department, it is important you drink at least 1-2 quarts of water daily. We have elected to leave your catheter in for 2 days to allow your bladder to continue to decompress after its distention postoperatively. As we discussed while you are in the emergency department you should use the syringe provided to remove the water from the menhaden vessel pilot balloon and then you may remove the Monzon catheter. If after 6 to 8 hours you are not able to urinate you should return to this or the nearest emergency department for reevaluation. We also recommend using 1 package of MiraLAX twice daily and water to keep your stools soft. Left with Dr. Turner on 23 December as scheduled. At any time if you develop worsening symptoms, fever cough, loss of bowel or bladder control, weakness etc. return to the emergency department immediately. Coding Level of Care Code ED Revenue Field Auditor for Fátima Matta
[2022-12-22 21:21] LABS: Basophils % 0.2 %; Eosinophils # 0.2 10^3/uL (0.0-0.8); Eosinophils % 1.5 %; Hematocrit 48.3 % (42.0-52.0); Hemoglobin 15.8 g/dL (11.7-16.6); Lymphocytes # 1.9 10^3/uL (0.8-4.8); Lymphocytes % 14.9 %; Mean Corpuscular HGB Conc 32.7 g/dL (30.0-36.0); Mean Corpuscular Hemoglobin 30.9 pg (28.0-34.0); Mean Corpuscular Volume 94.5 fl (80-94); Mean Platelet Volume 9.5 fL (7.4-10.4); Monocytes # 0.6 10^3/uL (0.2-0.9); Monocytes % 4.8 %; Neutrophils # 9.78 10^3/uL (1.8-7.7); Neutrophils % 78.2 %; Nucleated Red Blood Cells % 0 %; Platelet Count 288 10^3/cmm (130-400); Red Blood Count 5.11 10^6/uL (4.1-5.3); Red Cell Distribution Width 12.9 % (12.1-15.1); White Blood Count 12.5 10^3/uL (4.0-10.0)
[2022-12-22 21:46] LABS: Alanine Aminotransferase 13 U/L (0-41); Albumin Level 3.2 g/dL (3.5-5.2); Alkaline Phosphatase 93 U/L (40-130); Anion Gap 16.5 (5-19); Aspartate Amino Transferase 24 U/L (0-40); Blood Urea Nitrogen 24 mg/dL (8-23); Calcium 9.4 mg/dL (8.5-10.5); Carbon Dioxide 27 mmol/L (22-29); Chloride 101 mmol/L (98-107); Globulin 2.8 g/dL (1.3-4.6); Glucose 83 mg/dL (65-115); Osmolality Calculated 293 mOsm/kg (285-295); Potassium 4.5 mmol/L (3.5-5.1); Sodium 140 mmol/L (136-145); Total Bilirubin 0.6 mg/dL (0.15-1.2)
[2022-12-22 22:04] LABS: Add Urine Microscopic? YES; Bilirubin Urine Neg (Negative); Blood Urine 3+ (Negative); Glucose Urine UA Norm (Normal); Ketones Urine Negative (Negative); Leukocyte Esterase Urine Negative (Negative); Nitrate Urine Negative (Negative); Protein Urine Neg (Negative); Urine Appearance Clear (CLEAR); Urine Color Yellow (Yellow); Urobilinogen Urine Norm (Negative); pH Urine 5 (5-7)
[2022-12-22 22:05] LABS: Add Urine Culture? Yes; Bacteria Urine TRACE /hpf; RBC Urine 50-80 /hpf (0-2); Squamous Epithelial Cell Urine 0-4 /hpf (0-5); WBC Urine 0-4 /hpf (0-5)
[2022-12-22] MEDS: lactated ringers 1,000 ML 999 ML IV (22:19)
== END 2022-12-22 23:26 | disposition home or self-care (01) ==
PROVIDERS: Emergency Provider Emergency Medicine; PCP Family Medicine
DX: R33.9 Retention of urine, unspecified (principal); E86.9 Volume depletion, unspecified; F17.210 Nicotine dependence, cigarettes, uncomplicated
CPT/HCPCS: 51702; 80053; 81001; 85025; 87086; 96365; 99284; J7120

== ENCOUNTER → 2022-12-23 09:03 | Outpatient (BNVA) | payer MEDICARE, MEDICAID, SELFPAY | PROVIDERS: PCP Family Medicine; Visit Provider Orthopaedic Surgery | DX: Z47.89 Encounter for other orthopedic aftercare (principal) | CPT/HCPCS: 99024 ==

== ENCOUNTER → 2022-12-27 08:36 | Outpatient (BNVA) | payer MEDICARE, MEDICAID, SELFPAY | PROVIDERS: PCP Family Medicine; Visit Provider Orthopaedic Surgery | DX: Z47.89 Encounter for other orthopedic aftercare (principal) | CPT/HCPCS: 99024 ==

== ENCOUNTER 2022-12-28 14:12 | Emergency (ER) | payer MEDICARE, MEDICAID, SELFPAY ==
[2022-12-28 14:16] VITALS: BP 160/77; PULSE 70; RESP 17; O2SAT 96; BMI 19.8
[2022-12-28 14:19] VITALS: BP 160/77; O2SAT 95
[2022-12-28 14:30] VITALS: BP 160/77
--- NOTE | 2022-12-28 14:31 | PC.NURSE ---
Pt bowel is now loose.
--- NOTE | 2022-12-28 14:47 | W.ED.MALEGU ---
HPI - Male Genitourinary General: Chief complaint: Urogenital-Male Stated complaint: URINARY RETENTION POST OP Time Seen by Provider: 12/28/22 14:42 History of Present Illness: Patient is an 87-year-old male that comes to the ED with urinary retention. Past medical history of BPH. Patient says he has not been able to urinate since yesterday. Patient was seen here back on December 22 for same complaint. He states that he had his Monzon catheter in place and it was removed approximately 2 days ago. Yesterday evening use able to dribble out a little bit of urine and today he is feeling bladder pain and pressure and is only able to dribble out a little bit of urine as well. Denies any other symptoms. Associated symptoms: Deny dysuria, hematuria, nausea or vomiting Review of Systems Const: Denies: fever(s), chills or fatigue Eyes: Denies: change in vision or eye discomfort ENMT: Denies: throat pain, odynophagia, nasal discharge or nasal congestion Card: Denies: chest pain, palpitations, edema, swelling of feet/ankles, dyspnea on exertion or orthopnea Resp: Denies: dyspnea, productive cough or non-productive cough GI: Denies: abdominal pain, nausea, vomiting, diarrhea, constipation or hematochezia : Reports: difficulty urinating (Unable to urinate.); Denies: flank pain, dysuria or hematuria Musc: Denies: neck pain, back pain or extremity swelling Skin/Breast: Denies: rash or new lesions Neuro: Denies: headache(s), numbness in extremities or weakness in extremities PFS ED PFSH: Medical History Change in bowel habits Chronic fatigue Insomnia Spinal stenosis of lumbar region Surgical History H/O rotator cuff surgery RIGHT History of colonoscopy with polypectomy (~1997) Family History Denies family history of Diabetes CAD (coronary artery disease) Hyperlipidemia Cancer Hypertension Social History Smoking and tobacco status: current every day smoker cigarettes Packs smoked per day: 0.5 Alcohol intake: current Desire information about substance/drug rehabilitation?: No Current gender identity: Male Physical Exam Const: COMMON NORMALS: patient oriented x3 HENMT: COMMON NORMALS: normocephalic HEAD & SCALP: normocephalic MOUTH: Normal oral and palatal mucosa present THROAT: posterior oropharynx normal and uvula midline Neck/C-Spine: COMMON NORMALS: supple GENERAL: Yes normal visual inspection Resp: COMMON NORMALS: normal respiratory effort, No retractions, No use of accessory muscles and clear to auscultation bilaterally AUSCULTATION: clear to auscultation bilaterally Cardio: COMMON NORMALS: regular rate, regular rhythm, S1 normal heart sound present, S2 normal heart sound present, No gallops present (Cardio), No clicks present (Cardio), No murmurs present (Cardio) and Peripheral pulses 2+ throughout RATE: regular rate RHYTHM: regular rhythm HEART SOUNDS: S1 normal heart sound present and S2 normal heart sound present PERIPHERAL PULSES: Peripheral pulses 2+ throughout GI: COMMON NORMALS: Normal to inspection, nondistended, normoactive bowel sounds present, Soft to palpation, non-tender and no masses PALPATION: Yes Soft to palpation and Yes Bladder palpation abnormal : COMMON NORMALS: Yes no CVA tenderness BLADDER/KIDNEY EXAM: Yes no CVA tenderness and Yes Bladder palpation abnormal Bladder abnormal details: tender and distended midway to the umbilicus Back/Pelvis: COMMON NORMALS: no CVA tenderness Extremity: COMMON NORMALS: normal to inspection Neuro: COMMON NORMALS: patient oriented x3 GAIT: Yes Normal gait present Skin: GENERAL SKIN EXAM: dry skin Course ED course: Bladder scan performed by nurse and over 550 mL seen in bladder. Patient was still unable to urinate so Monzon catheter was placed and patient experienced immediate relief. Vital Signs: Vital signs: Vital Signs Pulse Rate 84 12/28/22 17:29 Respiratory Rate 20 H 12/28/22 17:29 Blood Pressure 160/77 12/28/22 15:30 Pulse Oximetry 96 12/28/22 17:29 Oxygen Delivery Me thod Room Air 12/28/22 14:16 [facility] - Male Medical Decision Making Patient is an 87-year-old male that comes to the ED with urinary retention. Past medical history of BPH. Patient says he has not been able to urinate since yesterday. Patient was seen here back on December 22 for same complaint. He states that he had his Monzon catheter in place and it was removed approximately 2 days ago. Yesterday evening use able to dribble out a little bit of urine and today he is feeling bladder pain and pressure and is only able to dribble out a little bit of urine as well. Denies any other symptoms. Vital stable.Bladder scan performed by nurse and over 550 mL seen in bladder. Patient was still unable to urinate so Monzon catheter was placed and patient experienced immediate relief. UA was unremarkable. I placed order with case management for patient to be referred to urologist for follow-up on right urinary retention either due to BPH or opioids from post op back surgery. Nurse instructed patient on how to care for Monzon catheter at home. Return to ED precautions given. Patient understood and agreed with plan. Lab Data I reviewed the patient's lab results. 12/28/22 15:56 12/28/22 15:56 Laboratory Results WBC 18.4 10^3/uL (4.0-10.0) H 12/28/22 15:56 RBC 4.37 10^6/uL (4.1-5.3) 12/28/22 15:56 Hgb 13.4 g/dL (11.7-16.6) 12/28/22 15:56 Hct 41.4 % (42.0-52.0) L 12/28/22 15:56 MCV 94.7 fl (80-94) H 12/28/22 15:56 MCH 30.7 pg (28.0-34.0) 12/28/22 15:56 MCHC 32.4 g/dL (30.0-36.0) 12/28/22 15:56 RDW 12.5 % (12.1-15.1) 12/28/22 15:56 Plt Count 369 10^3/cmm (130-400) 12/28/22 15:56 MPV 8.8 fL (7.4-10.4) 12/28/22 15:56 Neut % (Auto) 81.9 % 12/28/22 15:56 Lymph % (Auto) 9.6 % 12/28/22 15:56 [place] % (Auto) 5.4 % 12/28/22 15:56 Eos % (Auto) 0.2 % 12/28/22 15:56 Baso % (Auto) 0.3 % 12/28/22 15:56 Neut # (Auto) 15.04 10^3/uL (1.8-7.7) H 12/28/22 15:56 Lymph # (Auto) 1.8 10^3/uL (0.8-4.8) 12/28/22 15:56 [place] # (Auto) 1.0 10^3/uL (0.2-0.9) H 12/28/22 15:56 Eos # (Auto) 0.0 10^3/uL (0.0-0.8) 12/28/22 15:56 Baso # (Auto) 0.1 10^3/uL (0.0-0.1) 12/28/22 15:56 Nucleated RBC % (auto) 0 % 12/28/22 15:56 Nucleated RBCs # 0.0 /100WBC 12/28/22 15:56 Sodium 140 mmol/L (136-145) 12/28/22 15:56 Potassium 3.5 mmol/L (3.5-5.1) 12/28/22 15:56 Chloride 99 mmol/L (98-107) 12/28/22 15:56 Carbon Dioxide 31 mmol/L (22-29) H 12/28/22 15:56 Anion Gap 13.5 (5-19) 12/28/22 15:56 BUN 16 mg/dL (8-23) 12/28/22 15:56 Creatinine 0.9 mg/dL (0.7-1.2) 12/28/22 15:56 GFR Calculation Not Reportable 12/28/22 15:56 Glucose 127 mg/dL (65-115) H 12/28/22 15:56 Calculated Osmolality 293 mOsm/kg (285-295) 12/28/22 15:56 Calcium 8.9 mg/dL (8.5-10.5) 12/28/22 15:56 Total Bilirubin 0.4 mg/dL (0.15-1.2) 12/28/22 15:56 AST 18 U/L (0-40) 12/28/22 15:56 ALT 24 U/L (0-41) 12/28/22 15:56 Alkaline Phosphatase 70 U/L (40-130) 12/28/22 15:56 Total Protein 6.0 g/dL (6.6-8.7) L 12/28/22 15:56 Albumin 3.7 g/dL (3.5-5.2) 12/28/22 15:56 Globulin 2.3 g/dL (1.3-4.6) 12/28/22 15:56 Urine Color Yellow (Yellow) 12/28/22 15:40 Urine Appearance Clear (CLEAR) 12/28/22 15:40 Urine pH 7 (5-7) 12/28/22 15:40 Ur Specific [place] 1.010 (1.005-1.030) 12/28/22 15:40 Urine Protein Neg (Negative) 12/28/22 15:40 Urine Glucose (UA) Norm (Normal) 12/28/22 15:40 Urine Ketones Negative (Negative) 12/28/22 15:40 Urine Blood 3+ (Negative) H 12/28/22 15:40 Urine Nitrate Negative (Negative) 12/28/22 15:40 Urine Bilirubin Neg (Negative) 12/28/22 15:40 Urine Urobilinogen Norm mg/dL (Negative) 12/28/22 15:40 Ur Leukocyte Esterase Negative (Negative) 12/28/22 15:40 Urine RBC 40-50 /hpf (0-2) H 12/28/22 15:40 Urine WBC 0-4 /hpf (0-5) H 12/28/22 15:40 Ur Squamous Epith Cells Rare /hpf (0-5) 12/28/22 15:40 Amorphous Sediment Not Reportable 12/28/22 15:40 Urine Bacteria Trace /hpf (NONE) 12/28/22 15:40 Discharge Plan Discharge Patient Disposition: Home Clinical Impression: Acute urinary retention Condition: Stable Prescriptions: No Action ascorbate calcium (vitamin C) 500 mg tablet 500 mg PO BID calcium carb-D3-mag [id number] bv-flah-ey-mg tablet 1 tab PO DAILY Rx Instructions: administer with a meal alpha lipoic acid 200 mg capsule 200 mg PO DAILY omega-3 fatty acids [Fish Oil Concentrate] 1,000 mg capsule 1,000 mg PO BID arginine (L-arginine) 500 mg capsule 500 mg PO DAILY oxycodone-acetaminophen 5-325 mg tablet 1 - 2 tab PO Q4H PRN (Reason: pain) 7 Days Qty: 40 0RF prednisone 20 mg tablet 20 mg PO DAILY Qty: 15 0RF Rx Instructions: 60mg X3 days 40mg X2 days 20mg X 2days hydrocodone-acetaminophen 5-325 mg tablet 1 - 2 tab PO .Q4-6H Qty: 40 0RF tamsulosin 0.4 mg capsule 0.4 mg PO BID Rx Instructions: for urination diclofenac sodium 75 mg tablet,delayed release (DR/EC) 75 mg PO Q12H PRN (Reason: pain) Qty: 20 0RF Discharge Orders: Discharge ED (Routine); Ordered 12/28/22 Ordered By: Ciro Mercedes Referrals: Aravind Martin [Primary Care Provider] - Discharge Diet: Regular Discharge Activity: Increase activity as tolerated Patient Instructions: Urinary Retention in Men (ED) Activity Restrictions/Additional Instructions: Follow-up with medical provider as directed in the next 5 to 7 days for reevaluation and to check on catheter. customer project manager to be counting in the next several days to set up an appointment with the urologist for follow-up on acute urinary retention. Continue taking all home medications as previously prescribed. Return to the ER or your medical provider if condition worsens. Please read and understand discharge instructions. Thank you for choosing [facility] for your healthcare needs today. Please realize this is an emergency room and that we are providing you with a medical screening exam and this may not be complete and all inclusive of all the testing and or work up that you may need to determine your ailment or severity of your illness. It is very important that you follow up as instructed or that you return to the Emergency Department should you have concerns or if your condition changes or worsens in any way. Coding Level of Care Code ED Account Resolution Analyst for Fátima Matta
[2022-12-28 15:00] VITALS: BP 160/77
[2022-12-28 15:30] VITALS: BP 160/77
[2022-12-28 16:08] LABS: Basophils # 0.1 10^3/uL (0.0-0.1); Basophils % 0.3 %; Eosinophils % 0.2 %; Hematocrit 41.4 % (42.0-52.0); Hemoglobin 13.4 g/dL (11.7-16.6); Lymphocytes # 1.8 10^3/uL (0.8-4.8); Lymphocytes % 9.6 %; Mean Corpuscular HGB Conc 32.4 g/dL (30.0-36.0); Mean Corpuscular Hemoglobin 30.7 pg (28.0-34.0); Mean Corpuscular Volume 94.7 fl (80-94); Mean Platelet Volume 8.8 fL (7.4-10.4); Monocytes % 5.4 %; Neutrophils # 15.04 10^3/uL (1.8-7.7); Neutrophils % 81.9 %; Nucleated Red Blood Cells % 0 %; Platelet Count 369 10^3/cmm (130-400); Red Blood Count 4.37 10^6/uL (4.1-5.3); Red Cell Distribution Width 12.5 % (12.1-15.1); White Blood Count 18.4 10^3/uL (4.0-10.0)
[2022-12-28 16:27] LABS: Urine Appearance Clear (CLEAR); Urine Color Yellow (Yellow); pH Urine 7 (5-7)
[2022-12-28 16:28] LABS: Add Urine Microscopic? YES; Bilirubin Urine Neg (Negative); Blood Urine 3+ (Negative); Glucose Urine UA Norm (Normal); Ketones Urine Negative (Negative); Leukocyte Esterase Urine Negative (Negative); Nitrate Urine Negative (Negative); Protein Urine Neg (Negative); Urobilinogen Urine Norm (Negative)
[2022-12-28 16:30] LABS: Alanine Aminotransferase 24 U/L (0-41); Albumin Level 3.7 g/dL (3.5-5.2); Alkaline Phosphatase 70 U/L (40-130); Anion Gap 13.5 (5-19); Aspartate Amino Transferase 18 U/L (0-40); Blood Urea Nitrogen 16 mg/dL (8-23); Calcium 8.9 mg/dL (8.5-10.5); Carbon Dioxide 31 mmol/L (22-29); Chloride 99 mmol/L (98-107); Globulin 2.3 g/dL (1.3-4.6); Glucose 127 mg/dL (65-115); Osmolality Calculated 293 mOsm/kg (285-295); Potassium 3.5 mmol/L (3.5-5.1); Sodium 140 mmol/L (136-145); Total Bilirubin 0.4 mg/dL (0.15-1.2)
[2022-12-28 16:39] LABS: Add Urine Culture? Yes; Bacteria Urine TRACE /hpf; RBC Urine 40-50 /hpf (0-2); Squamous Epithelial Cell Urine RARE /hpf (0-5); WBC Urine 0-4 /hpf (0-5)
[2022-12-28 17:29] VITALS: PULSE 84; RESP 20; O2SAT 96
--- NOTE | 2022-12-29 08:53 | DCPLANNER ---
Addendum entered by Narcisa Blank 01/25/23 15:01: Patient had a follow up appointment scheduled with urology - patient did attend appointment. Addendum entered by Narcisa Blank 12/30/22 07:29: Patient has a follow up appointment scheduled for Tuesday, January 12, 2023 at 3:[address] Blakely at urology. Original Note: pharmacy operations manager had message to schedule a follow up appointment for patient with urology. pharmacy operations manager sent patients information to the front office staff at urology. Patients information will be printed and reviewed. Clinic will call patient with appointment information.
== END 2022-12-28 17:30 | disposition home or self-care (01) ==
PROVIDERS: Emergency Provider Physician Assistant; PCP Family Medicine
DX: R33.9 Retention of urine, unspecified (principal); F17.210 Nicotine dependence, cigarettes, uncomplicated
CPT/HCPCS: 36415; 51702; 51798; 80053; 81001; 85025; 87086; 99283

== ENCOUNTER 2023-01-06 11:18 | Outpatient (CLI) | payer MEDICARE, MEDICAID, SELFPAY ==
--- NOTE | 2023-01-06 11:30 | XR_ITS ---
WS: [id number] DEXA (DUAL ENERGY X-RAY ABSORPTIOMETRY) Bone mineral density was performed using a [employer] machine. HISTORY: TRAUMATIC COMPRESSION FRACTURE OF T7 THORACIC VERTEBRA, CLOS COMPARISON: None available. Lumbar spine BMD (L1-L4): 1.152 g/cm2 T score: -0.6 Z score: 1.3 Total hip BMD: Left: 0.686 g/cm2. T score: -2.9 Z score: -0.7 Right: 1.030 g/cm2. T score: -0.5 Z score: 1.7 10 year probability of a major osteoporotic fracture is 13.1%. XR/XR DEXA axial skeleton* 56333 IMPRESSION: OSTEOPOROSIS based upon the WHO classification for females.
== END 2023-01-06 11:19 | disposition home or self-care (01) ==
LOC: RAD 11:24
PROVIDERS: PCP Family Medicine; Visit Provider Family Medicine
DX: S22.060A Wedge compression fracture of T7-T8 vertebra, initial encounter for closed fracture (principal); X58.XXXA Exposure to other specified factors, initial encounter
CPT/HCPCS: 77080

== ENCOUNTER 2023-01-12 01:21 | Inpatient (IN) | payer MEDICARE, MEDICAID, SELFPAY ==
[2023-01-12] VITALS (161 sets, daily range): BP systolic 95–217; BP diastolic 49–99; PULSE 0–123; RESP 10–93; TEMP 36.9–37.7; O2SAT 73–100; BMI 21.2; BMI 18.8
--- NOTE | 2023-01-12 01:23 | XRR_ITS ---
PROCEDURE INFORMATION: Exam: XR Chest Exam date and time: 01/12/2023 1:29 AM Age: 87 years old Clinical indication: Prior surgery; Surgery type: RT rotator cuff. Kyphoplasty; Patient HX: Low grade fever; Additional info: AMS TECHNIQUE: Imaging protocol: Radiologic exam of the chest. Views: 1 view. COMPARISON: CR XR chest 1V portable [id number] 12/20/2022 5:53 AM FINDINGS: Lungs: Right basilar patchy airspace disease. Left lung clear. Mild COPD. Pleural spaces: Unremarkable. No pleural effusion. No pneumothorax. Heart/Mediastinum: Unremarkable. No cardiomegaly. Vasculature: Advanced diffuse vascular calcification noted. Bones/joints: Right humeral head anchor. Midthoracic kyphoplasty. Diffuse osteopenia. XR/XR chest 1V portable [id number] IMPRESSION: Right basilar pneumonia should be followed to resolution.
--- NOTE | 2023-01-12 01:24 | ECG_ITS ---
[facility] Test Date: 2023-01-12 Pat Name: Adam Monsalve Department: Room: Gender: Male Construction Carpenter: : 1935 Requested By: Sylvia Gilbert Order Number: [id number] Sully MD: Jose Lozada M.D. Measurements Intervals [place] Rate: 99 P: 81 MS: 120 QRS: 60 QRSD: 92 T: 75 QT: 332 QTc: 427 Interpretive Statements SINUS RHYTHM WITH FREQUENT VENTRICULAR PREMATURE COMPLEXES ABNORMAL RHYTHM ECG Compared to ECG 11/01/2022 13:30:57 Ventricular premature complex(es) now present Electronically Signed On 01-12-2023 14:18:24 CDT by Jose Lozada M.D. [id number]
--- NOTE | 2023-01-12 01:26 | W.ED.FEVER ---
HPI - Fever General: Chief Complaint: Fall Stated Complaint: fall, fever, confusion Time Seen by Provider: 01/12/23 01:23 Source: patient and EMS Mode of arrival: EMS Limitations: no limitations History of Present Illness: This is an 87-year-old male who EMS was called as he is having multiple falls along with increased weakness and fever. He had had a Swanson placed 2 to 3 weeks ago due to urinary retention he does have cloudy urine out of the Swanson. As he has not been eating as much he does appear cachectic and dehydrated here. Patient is able answer all my questions appropriately he knows the year states he has been feeling very weak. Associated symptoms: Reports chills and dysuria; Deny abdominal pain, chest pain, diarrhea, headache(s), nausea or vomiting Review of Systems Const: Reports: fever(s) and chills; Denies: body aches Eyes: Denies: eye discomfort ENMT: Denies: throat pain or dental pain Card: Denies: chest pain Resp: Denies: dyspnea GI: Denies: abdominal pain, nausea, vomiting or diarrhea : Reports: dysuria Musc: Denies: neck pain or back pain Skin/Breast: Denies: rash Neuro: Denies: headache(s) PFSH ED PFSH: Medical History Change in bowel habits Chronic fatigue Insomnia Spinal stenosis of lumbar region Surgical History H/O rotator cuff surgery RIGHT History of colonoscopy with polypectomy (~1997) Family History Denies family history of Diabetes CAD (coronary artery disease) Hyperlipidemia Cancer Hypertension Social History Smoking and tobacco status: current every day smoker cigarettes Packs smoked per day: 0.5 Alcohol intake: current Substance/Drug Use: never Desire information about substance/drug rehabilitation?: No Current gender identity: Male Physical Exam Const: COMMON NORMALS: patient oriented x3 GENERAL APPEARANCE: ill appearing and frail appearing HENMT: COMMON NORMALS: normocephalic and atraumatic HEAD & SCALP: normocephalic and atraumatic Eye: COMMON NORMALS: Equal, round and reactive pupils present, EOMs intact bilaterally and conjunctivae normal CONJUNCTIVA: Yes conjunctivae normal PUPIL: Yes Equal, round and reactive pupils present Neck/C-Spine: COMMON NORMALS: full ROM, supple and no meningeal signs Chest: COMMONS NORMALS: normal inspection of the chest and normal palpation of entire chest wall Resp: COMMON NORMALS: normal respiratory effort, No retractions, No use of accessory muscles and clear to auscultation bilaterally AUSCULTATION: clear to auscultation bilaterally Cardio: COMMON NORMALS: regular rate, regular rhythm and No murmurs present (Cardio) RATE: regular rate RHYTHM: regular rhythm GI: COMMON NORMALS: Normal to inspection, nondistended, normoactive bowel sounds present, Soft to palpation, non-tender and no masses PALPATION: Yes Soft to palpation : OTHER: swanson in place with cloudy urine Extremity: COMMON NORMALS: normal to inspection and full ROM Neuro: COMMON NORMALS: patient oriented x3, moves all extremities and no focal motor deficits MENINGEAL SIGNS: Yes no meningeal signs Psych: COMMON NORMALS: mental status grossly normal, Normal thought process present and cooperative THOUGHT PROCESS: Normal thought process present Skin: COMMON NORMALS: no rashes or lesions noted and no wounds GENERAL SKIN EXAM: no rashes or lesions noted Course Vital Signs: Vital signs: Vital Signs Temperature 99.0 F 01/12/23 01:23 Pulse Rate 105 H 01/12/23 01:23 Respiratory Rate 20 H 01/12/23 01:23 Blood Pressure 152/70 01/12/23 01:23 Pulse Oximetry 93 01/12/23 01:32 Oxygen Delivery Me thod Room Air 01/12/23 01:32 MDM - Fever Medical Decision Making Patient presents here with fever along with weakness multiple falls he does have a right-sided pneumonia along with a UTI and elevated white count have given 2 L fluid along with IV antibiotics spoke to the hospitalist will admit to stepdown at this time. Medical Records I reviewed the patient's medical records. Lab Data I reviewed the patient's lab results. 01/12/23 01:28 01/12/23 01:28 Laboratory Results WBC 20.8 10^3/uL (4.0-10.0) H 01/12/23 01:28 RBC 4.37 10^6/uL (4.1-5.3) 01/12/23 01:28 Hgb 13.5 g/dL (11.7-16.6) 01/12/23 01: Hct 40.9 % (42.0-52.0) L 01/12/23 01: MCV 93.6 fl (80-94) 01/12/23 01:28 MCH 30.9 pg (28.0-34.0) 01/12/23 01: MCHC 33.0 g/dL (30.0-36.0) 01/12/23 01: RDW 14.3 % (12.1-15.1) 01/12/23 01: Plt Count 198 10^3/cmm (130-400) 01/12/23 01: MPV 9.9 fL (7.4-10.4) 01/12/23 01: Neut % (Auto) 97.8 % 01/12/23 01: Lymph % (Auto) 1.1 % 01/12/23 01: [place] % (Auto) 0.5 % 01/12/23 01: Eos % (Auto) 0.0 % 01/12/23 01: Baso % (Auto) 0.1 % 01/12/23 01: Neut # (Auto) 20.33 10^3/uL (1.8-7.7) H 01/12/23 01:28 Lymph # (Auto) 0.2 10^3/uL (0.8-4.8) L 01/12/23 01:28 [place] # (Auto) 0.1 10^3/uL (0.2-0.9) L 01/12/23 01:28 Eos # (Auto) 0.0 10^3/uL (0.0-0.8) 01/12/23 01: Baso # (Auto) 0.0 10^3/uL (0.0-0.1) 01/12/23: Nucleated RBC % (auto) 0 % 01/12/23 01: Nucleated RBCs # 0.0 /100WBC 01/12/23 01:28 Sodium 132 mmol/L (136-145) L 01/12/23 01: Potassium 3.9 mmol/L (3.5-5.1) 01/12/23 01:28 Chloride 94 mmol/L (98-107) L 01/12/23 01:28 Carbon Dioxide 22 mmol/L (22-29) 01/12/23 01:28 Anion Gap 19.9 (5-19) H 01/12/23 01:28 BUN 24 mg/dL (8-23) H 01/12/23 01:28 Creatinine 1.9 mg/dL (0.7-1.2) H 01/12/23 01:28 GFR Calculation Not Reportable 01/12/23 01:28 Glucose 75 mg/dL (65-115) 01/12/23 01:28 Calculated Osmolality 277 mOsm/kg (285-295) L 01/12/23 01:28 Lactic Acid 2.3 mmol/L (0.5-2.2) H 01/12/23 01:46 Calcium 8.8 mg/dL (8.5-10.5) 01/12/23 01:28 Total Bilirubin 2.0 mg/dL (0.15-1.2) H 01/12/23 01:28 AST 29 U/L (0-40) 01/12/23 01:28 ALT 15 U/L (0-41) 01/12/23 01:28 Alkaline Phosphatase 70 U/L (40-130) 01/12/23 01:28 Total Protein 5.5 g/dL (6.6-8.7) L 01/12/23 01:28 Albumin 3.1 g/dL (3.5-5.2) L 01/12/23 01:28 Globulin 2.4 g/dL (1.3-4.6) 01/12/23 01:28 Urine Color Yellow (Yellow) 01/12/23 01:41 Urine Appearance Sl hazy (CLEAR) A 01/12/23 01:41 Urine pH 7 (5-7) 01/12/23 01:41 Ur Specific [place] 1.010 (1.005-1.030) 01/12/23 01:41 Urine Protein 3+ (Negative) H 01/12/23 01:41 Urine Glucose (UA) Norm (Normal) 01/12/23 01:41 Urine Ketones 1+ (Negative) H 01/12/23 01:41 Urine Blood 3+ (Negative) H 01/12/23 01:41 Urine Nitrate Negative (Negative) 01/12/23 01:41 Urine Bilirubin Neg (Negative) 01/12/23 01:41 Urine Urobilinogen Neg mg/dL (Negative) 01/12/23 01:41 Ur Leukocyte Esterase 2+ (Negative) H 01/12/23 01:41 Urine RBC 15-25 /hpf (0-2) H 01/12/23 01:41 Urine WBC 10-15 /hpf (0-5) H 01/12/23 01:41 Ur Squamous Epith Cells 0-4 /hpf (0-5) H 01/12/23 01:41 Calcium Oxalate Crystal 10-15 /hpf H 01/12/23 01:41 Amorphous Sediment Not Reportable 01/12/23 01:41 Urine Bacteria 2+ /hpf (NONE) H 01/12/23 01:41 Hyaline Casts 5-10 /lpf H 01/12/23 01:41 Urine Mucus 2+ /hpf 01/12/23 01:41 Critical Care Time Critical Care Time: Critical Care Time: Yes Total Critical Care Time: 40 Attestation: The high probability of a clinically significant, sudden or life threatening deterioration of the patient's resp system(s) required my full and direct attention, intervention and personal management. The critical care time is as shown. This time is in addition to time spent performing any reported procedures but includes the following: [x] Data and vital sign review and interpretation [x] Patient assessment, examination and intervention [x] Documentation [x] Medication orders and management Discharge Plan Discharge Patient Disposition: Admitted As Inpatient Clinical Impression: Community acquired pneumonia, Acute cystitis Condition: Stable Coding Level of Care Code ED Cco & President for Fátima Matta
--- NOTE | 2023-01-12 01:31 | CTR_ITS ---
PROCEDURE INFORMATION: Exam: CT Head Without Contrast Exam date and time: 01/12/2023 1:54 AM Age: 87 years old Clinical indication: Injury or trauma; Blunt trauma (contusions or hematomas); Fever and other: General weakness; Patient HX: General weakness with recent multiple falls. Low grade fever. ; Additional info: Fall TECHNIQUE: Imaging protocol: Computed tomography of the head without contrast. Radiation optimization: All CT scans at this facility use at least one of these dose optimization techniques: automated exposure control; mA and/or kV adjustment per patient size (includes targeted exams where dose is matched to clinical indication); or iterative reconstruction. REPORTING DATA: Count of CT and Cardiac NM exams in prior 12 months: This patient has received 0 known CTs and 0 known cardiac nuclear medicine studies in the 12 months prior to the current study. COMPARISON: No relevant prior studies available. RADIATION DOSE METRICS: Total DLP (mGy-cm): 877.04 FINDINGS: Brain: No focal hemorrhage or midline shift is identified. The ventricles and parenchyma show moderate atrophy and chronic bicerebral white matter ischemic change. Prominent falcine ossification. Cerebral ventricles: No ventriculomegaly or evidence of hydrocephalus. Paranasal sinuses: No evidence of acute sinusitis. Mastoid air cells: Visualized mastoid air cells are well aerated. Bones/joints: No displaced skull fracture is noted. Soft tissues: Unremarkable. Vasculature: Diffuse vascular calcifications are present. CT/CT head wo con* [id number] IMPRESSION: 1. No acute intracranial abnormality. 2. Moderate age-related changes.
[2023-01-12 01:34] LABS: Basophils % 0.1 %; Hematocrit 40.9 % (42.0-52.0); Hemoglobin 13.5 g/dL (11.7-16.6); Lymphocytes # 0.2 10^3/uL (0.8-4.8); Lymphocytes % 1.1 %; Mean Corpuscular Hemoglobin 30.9 pg (28.0-34.0); Mean Corpuscular Volume 93.6 fl (80-94); Mean Platelet Volume 9.9 fL (7.4-10.4); Monocytes # 0.1 10^3/uL (0.2-0.9); Monocytes % 0.5 %; Neutrophils # 20.33 10^3/uL (1.8-7.7); Neutrophils % 97.8 %; Nucleated Red Blood Cells % 0 %; Platelet Count 198 10^3/cmm (130-400); Red Blood Count 4.37 10^6/uL (4.1-5.3); Red Cell Distribution Width 14.3 % (12.1-15.1); White Blood Count 20.8 10^3/uL (4.0-10.0)
[2023-01-12 01:55] LABS: Alanine Aminotransferase 15 U/L (0-41); Albumin Level 3.1 g/dL (3.5-5.2); Alkaline Phosphatase 70 U/L (40-130); Anion Gap 19.9 (5-19); Aspartate Amino Transferase 29 U/L (0-40); Blood Urea Nitrogen 24 mg/dL (8-23); Calcium 8.8 mg/dL (8.5-10.5); Carbon Dioxide 22 mmol/L (22-29); Chloride 94 mmol/L (98-107); Globulin 2.4 g/dL (1.3-4.6); Glucose 75 mg/dL (65-115); Osmolality Calculated 277 mOsm/kg (285-295); Potassium 3.9 mmol/L (3.5-5.1); Sodium 132 mmol/L (136-145); Total Protein 5.5 g/dL (6.6-8.7)
[2023-01-12 02:07] LABS: Lactic Sepsis W/Reflex 2.3 mmol/L (0.5-2.2)
[2023-01-12] MEDS: cefTRIAXone 1,000 MG in sodium chloride 0.9% (plus) 50 ML 100 MG IV (02:21)
[2023-01-12] MEDS: azithromycin 500 MG in sodium chloride 0.9% 250 ML 250 MG IV (02:23)
[2023-01-12 02:48] LABS: Add Urine Microscopic? YES; Bilirubin Urine Neg (Negative); Blood Urine 3+ (Negative); Glucose Urine UA Norm (Normal); Ketones Urine 1+ (Negative); Leukocyte Esterase Urine 2+ (Negative); Nitrate Urine Negative (Negative); Protein Urine 3+ (Negative); Urine Appearance SL Hazy (CLEAR); Urine Color Yellow (Yellow); Urobilinogen Urine Neg (Negative); pH Urine 7 (5-7)
[2023-01-12 02:49] LABS: Add Urine Culture? Yes; Bacteria Urine 2+ /hpf; Mucus Urine 2+ /hpf; RBC Urine 15-25 /hpf (0-2); Squamous Epithelial Cell Urine 0-4 /hpf (0-5)
[2023-01-12] MEDS: sodium chloride 0.9% 1,000 ML 999 ML IV ×2 (03:26→03:37)
--- NOTE | 2023-01-12 05:48 | PC.PHAR ---
Pharmacokinetic dosing service Date: 01/12/22 Time: 547 Objective: Patient: Adam Monsalve Floor: ICU-8 Age: 87 yo Serum creatinine: 1.9 mg/dL Height: 62.0 Inches Weight (kg): 46.72 Diagnosis: Relevant medical/social history: Cultures and sensitivities: Other labs: Assessment: IBW (kg): 54.60 Dosing wt(kg): 46.72 Estimated Creatinine clearance (ml/min): 17.8 CRCL method: Cockcroft and Gault using ibw(default). Drug selected: Vancomycin Loading dose (mg): 0 Vd (liters): 42.0 (factor used: 0.9 L/kg) Will (hr-1): 0.019 Half life (hrs): 36.48 Recommended dose: 750 mg Interval: 48 hrs Infusion time (hrs): 1.5 Predicted peak (mcg/mL): 29.4 Predicted trough (mcg/mL): 12.15 Total body weight is being used for vancomycin dosing. Renal function is stable [ ] /unstable [ ] Recommendations: Give Vancomycin 750 mg q 48 hrs with an expected Cpeak of 29.4 mcg/ml and an expected Ctrough of 12.15 mcg/ml Renal dosing of other antibiotics (review renal dosing of other medications and list guidelines here): Thank you for the consult, will continue to follow. Signature: [facility] [place] [facility]
--- NOTE | 2023-01-12 05:49 | CTR_ITS ---
PROCEDURE INFORMATION: Exam: CT Chest Without Contrast; Diagnostic Exam date and time: 01/12/2023 6:25 AM Age: 87 years old Clinical indication: Other: Jaundice; Fever; Additional info: Sepsis, pna, jaundice TECHNIQUE: Imaging protocol: Diagnostic computed tomography of the chest without contrast. Radiation optimization: All CT scans at this facility use at least one of these dose optimization techniques: automated exposure control; mA and/or kV adjustment per patient size (includes targeted exams where dose is matched to clinical indication); or iterative reconstruction. REPORTING DATA: Count of CT and Cardiac NM exams in prior 12 months: This patient has received 0 known CTs and 0 known cardiac nuclear medicine studies in the 12 months prior to the current study. COMPARISON: CR (CHEST, ) 01/12/2023 1:29 AM RADIATION DOSE METRICS: Total DLP (mGy-cm): 463.59 FINDINGS: Thyroid: Bilateral thyroid nodules without suspicious features measuring up to 12 mm on the left and 14 mm on the right. Lungs: There is dense consolidation throughout the right lower lobe. The right upper and middle lobes are clear. There is mild dependent opacity in the left lower lobe associated with bronchial mucous plugging. The left lung is otherwise clear. Pleural spaces: No pneumothorax. Small right and trace left pleural effusions. Heart: There is mild cardiac enlargement. There is trace pericardial effusion. Coronary arteries: There is severe coronary artery calcification. Lymph nodes: There is no mediastinal or hilar lymphadenopathy. Vasculature: There is severe aortic atherosclerotic disease. Bones/joints: Mild T7 compression fracture status post vertebroplasty. No acute fracture. Soft tissues: The extrathoracic soft tissues are unremarkable. COMMENTS: Consistent with the [employer]'s Incidental Findings Committee white paper (J Am Vilma Radiol 2015): In patients aged 35 years and older with an incidental thyroid nodule equal to or greater than 1.[address], MRI or extrathyroidal US, further evaluation with dedicated thyroid US is recommended for patients with normal life expectancy and without comorbidities. For smaller nodules without suspicious features, no further evaluation or follow up is recommended. PROCEDURE INFORMATION: Exam: CT Abdomen And Pelvis Without Contrast Exam date and time: 01/12/2023 6:25 AM Age: 87 years old Clinical indication: Other: Jaundice; Fever; Additional info: Sepsis, pna, jaundice TECHNIQUE: Imaging protocol: Computed tomography of the abdomen and pelvis without contrast. Radiation optimization: All CT scans at this facility use at least one of these dose optimization techniques: automated exposure control; mA and/or kV adjustment per patient size (includes targeted exams where dose is matched to clinical indication); or iterative reconstruction. REPORTING DATA: Count of CT and Cardiac NM exams in prior 12 months: This patient has received 0 known CTs and 0 known cardiac nuclear medicine studies in the 12 months prior to the current study. COMPARISON: CR XR hip RT 2-3V wo/w pel* [id number] 04/22/2021 1:59 PM RADIATION DOSE METRICS: Total DLP (mGy-cm): 463.59 FINDINGS: Liver: The liver is normal. Gallbladder and bile ducts: The gallbladder is normal. There is no biliary dilation. Pancreas: The pancreas is unremarkable. Spleen: The spleen is unremarkable. Adrenal glands: The adrenal glands are mildly enlarged and ill-defined bilaterally. No mass. Kidneys and ureters: Nonobstructive stones are seen in both kidneys. There is no hydronephrosis or ureteral dilation. Stomach and bowel: The stomach is decompressed, preventing meaningful evaluation of wall thickness. There is mild sigmoid colonic diverticulosis without evidence of diverticulitis. Appendix: The appendix is normal. Intraperitoneal space: There is no free air or significant intraperitoneal free fluid. Vasculature: There is severe aortic atherosclerotic disease. Lymph nodes: There is no lymphadenopathy in the retroperitoneum, mesentery, pelvis or inguinal regions. Urinary bladder: The Monzon catheter is appropriately positioned with the bulb and tip within the bladder lumen. There is a 9 mm intraluminal stone in bladder. There is a 2 cm linear plaque-like calcification along posterior aspect of bladder wall. Reproductive: There is nonspecific moderate enlargement of the prostate gland. Bones/joints: There is moderate degenerative disease in the lumbar spine. The pelvis and hips are unremarkable. Soft tissues: The abdominal wall is intact. CT/[place] [id number] IMPRESSION: 1. Dense consolidation throughout the right lower lobe consistent with pneumonia. 2. Mild nonspecific opacity in the left lung base associated with bronchial mucous plugging. Possible aspiration, infection or atelectasis. 3. Incidental findings above. IMPRESSION: 1. Bilateral adrenal edema. In the setting of pneumonia and sepsis, this finding is suspicious for adrenal congestion which is a sign of adrenal dysfunction and may precede adrenal hemorrhage. 2. Incidental findings above.
--- NOTE | 2023-01-12 05:52 | USCV_ITS ---
Adam Monsalve Age: 87 Gender: M : 1935 Exam Date: 01/12/2023 08:02 Ordering Phys: Bruce Dickey MD Technologist: CT Exam Location: [facility] [place]_ Indication: swelling PROCEDURES: The venous duplex Doppler examination of both lower extremities was performed in the standard fashion. In addition, the posterior tibial and peroneal trunk were evaluated. Bilaterally, the common femoral, superficial femoral, profunda femoral, popliteal, posterior tibial, greater saphenous veins, and the peroneal trunk were identified and interrogated in the standard fashion. These veins were found to be easily compressible with spontaneous blood flow. No evidence of insufficiency or thrombus noted. CONCLUSIONS No evidence of right lower extremity DVT. No evidence of left lower extremity DVT. Koffi Jorgensen MD (Electronically Signed) Final Date: 12 Jan 2023 16:57 S
--- NOTE | 2023-01-12 05:53 | PM.HP ---
Providers/Chief Complaint Admitting Physician: Bruce Dickey MD Primary Care Provider: Aravind Martin Chief Complaint: fall, fever, confusion History of Present Illness Adam Monsalve is a 87 year old male with a past medical history of spinal stenosis, insomnia, chronic fatigue, BPH, white coat syndrome, chronic active smoker, history of peripheral vascular disease, history of urinary retention for which she is had a Monzon catheter placed in the emergency room who presents to [facility] due to weakness, fatigue, falls, fever currently patient is alert to person, not to place, not to time, he does follow commands, he is very hard of hearing history taking was difficult.. When asked him why he is here in the hospital, he tells me he is just weak all over he hurts all over, he feels tired all the time. He also reports feeling feverish. When asked him about details about his Monzon catheter he tells me he was holding onto urine but cannot give me any more details about if his Monzon catheter was changed, his Monzon catheter according to nursing staff has been present for the last 2 to 3 weeks. I asked him if he feels short of breath, he tells me he feels short of breath all the time, when asked if he has abdominal pain, he tells me hurts all over his abdomen, denies diarrhea, no nausea, no vomiting. Patient was found to have septic shock in the emergency room, MAP 65, focus of infection UTI, pneumonia, acute renal failure, lactic acidosis, is receiving his fluid bolus, MAP improving to greater than 65,, moved to ICU Review of Systems Const: Reports: fever(s), chills, fatigue and malaise Card: Denies: chest pain Resp: Reports: dyspnea GI: Reports: abdominal pain : Reports: difficulty urinating; Denies: flank pain Medications/Allergies Home Medications Medication Instructions Recorded Confirmed Last Taken Type alpha lipoic acid 200 mg capsule 200 mg PO DAILY 04/22/21 12/28/22 12/28/22 History arginine (L-arginine) 500 mg 500 mg PO DAILY 04/22/21 12/28/22 12/28/22 History capsule ascorbate calcium (vitamin C) 500 500 mg PO BID 04/22/21 12/28/22 12/28/22 History mg tablet calcium carb-vit C6-[id number]-lpgr 1 tab PO DAILY 04/22/21 12/28/22 12/28/22 History 333 mg-200 unit-133 mg-5 mg tablet omega-3 fatty acids 1,000 mg 1,000 mg PO BID 04/22/21 12/28/22 12/28/22 History capsule (Fish Oil Concentrate) diclofenac sodium 75 mg 75 mg PO Q12H PRN pain #20 tabs 11/01/22 12/28/22 12/28/22 Rx tablet,delayed release tamsulosin 0.4 mg capsule 0.4 mg PO BID 11/01/22 12/28/22 12/28/22 History hydrocodone 5 mg-acetaminophen 325 1 - 2 tab PO .Q4-6H #40 tabs 12/20/22 12/28/22 Unknown Rx mg tablet oxycodone-acetaminophen 5 mg-325 1 - 2 tab PO Q4H PRN pain 7 days 12/21/22 12/28/22 Unknown Rx mg tablet #40 tabs prednisone 20 mg tablet 20 mg PO DAILY #15 tabs 12/24/22 12/28/22 12/28/22 Rx Allergies Allergy/AdvReac Type Severity Reaction Status Date / Time No Known Allergies Allergy Verified 01/12/23 01:28 PFSH Acute PFSH: Medical History Change in bowel habits Chronic fatigue Insomnia Spinal stenosis of lumbar region Surgical History H/O rotator cuff surgery RIGHT History of colonoscopy with polypectomy (~1997) Family History Denies family history of Diabetes CAD (coronary artery disease) Hyperlipidemia Cancer Hypertension Social History Smoking and tobacco status: current every day smoker cigarettes Packs smoked per day: 0.5 Alcohol intake: current Substance/Drug Use: never Desire information about substance/drug rehabilitation?: No Current gender identity: Male Vitals/I&O/Wt Last Vital Signs Temp 98.4 F 01/12/23 04:34 Pulse 94 01/12/23 05:35 Resp 34 H 01/12/23 05:35 BP 149/65 05/03/23 05:35 Pulse Ox 97 01/12/23 05:35 O2 Del Method Room Air 01/12/23 04:30 01/11/23 01/11/23 01/12/23 14:59 22:59 06:59 Intake Total 233.15 / 233.15 Output Total 300 / 300 Balance -66.85 / -66.85 Weight last 48 hrs Weight 46.72 kg Weight 54.431 kg Physical Exam Const: COMMON NORMALS: no acute distress EXAM LIMITATIONS: altered mental status ORIENTATION/CONSCIOUSNESS: Yes awake and Yes oriented to person; not oriented to place and not oriented to time OTHER: Jaundiced in appearance HENMT: COMMON NORMALS: normocephalic HEAD & SCALP: normocephalic Eye: COMMON NORMALS: Equal, round and reactive pupils present Neck/C-Spine: COMMON NORMALS: no lymphadenopathy Chest: COMMONS NORMALS: normal inspection of the chest Resp: COMMON NORMALS: normal respiratory effort, No retractions, No use of accessory muscles and clear to auscultation bilaterally AUSCULTATION: clear to auscultation bilaterally Cardio: COMMON NORMALS: regular rate, regular rhythm, S1 normal heart sound present and S2 normal heart sound present RATE: regular rate RHYTHM: regular rhythm HEART SOUNDS: S1 normal heart sound present and S2 normal heart sound present GI: COMMON NORMALS: Normal to inspection, nondistended, normoactive bowel sounds present, Soft to palpation and non-tender : COMMON NORMALS: Yes no CVA tenderness Extremity: COMMON NORMALS: no pedal edema Neuro: OTHER: Can follow some neurologic testing such as squeezing fingers, wiggling his toes, smiling for me but cannot follow any other neurologic testing due to confusion Data 01/12/23 01:28 01/12/23 01:28 Micro: Microbiology 01/12/23 02:04 Blood Culture - Preliminary Blood SPECIMEN COLLECTED 01/12/23 01:46 Blood Culture - Preliminary Blood SPECIMEN COLLECTED A&P Assessment and plan (1) Acute encephalopathy: (2) Septic shock: (3) Lactic acidosis: (4) UTI (urinary tract infection): (5) Pneumonia: (6) Acute renal failure: (7) Hyperbilirubinemia: (8) Hyponatremia: Plan Acute encephalopathy -Secondary to UTI, pneumonia -Neurochecks, aspiration precautions Septic shock -With lactic acidosis, leukocytosis, acute renal failure, acute encephalopathy, focus of infection UTI, pneumonia -With hypotension requiring fluid bolus, responding to fluid therapy Right lower lobe pneumonia -Currently on oxygen therapy -Broad-spectrum antibiotic therapy vancomycin and Zosyn -Sputum cultures, blood cultures -CT of the chest Urinary tract infection, with history of urinary tension with history of chronic Monzon catheter -Which was placed 2 to 3 weeks ago -Continue broad-spectrum antibiotic therapy as above -CT scan abdomen pelvis -Follow urine cultures Smoking, possible history of COPD -DuoNeb, budesonide Lactic acidosis, receiving fluid therapy likely second to sepsis Acute renal failure, likely secondary to sepsis, IV fluids Hyponatremia likely secondary to sepsis, dehydration, IV fluids Hyperbilirubinemia, appears jaundice, obtain lipase, GGT, CT scan abdomen pelvis Left leg swelling, will order venous ultrasound for DVT BPH, continue Flomax Attestations Medical Necessity Statement*: Patient requires hospitalization inpatient, greater than 2 midnights, for sepsis, septic encephalopathy, UTI, pneumonia, acute renal failure Diagnoses Acute encephalopathy G93.40 Septic shock A41.9; R65.21 Lactic acidosis E87.20 UTI (urinary tract infection) N39.0 Pneumonia J18.9 Acute renal failure N17.9 Hyperbilirubinemia E80.6 Hyponatremia E87.1
[2023-01-12] MEDS: enoxaparin 40 mg/0.4 mL Syringe SUBCUT (06:38)
[2023-01-12] MEDS: sodium chloride 0.9% 1,000 ML 75 ML IV ×2 (06:38→18:29)
[2023-01-12] MEDS: pantoprazole 40 mg SDV IVP ×2 (06:39→18:28)
[2023-01-12] MEDS: vancomycin 750 MG in sodium chloride 0.9% 250 ML 250 MG IV (06:39)
[2023-01-12 06:41] LABS: Lactic Sepsis W/Reflex 1.5 mmol/L (0.5-2.2)
[2023-01-12 06:52] LABS: Chol HDL Ratio 1.48 mg/dL (1.0-5.00); Cholesterol 93 mg/dL (0-200); HDL Cholesterol 63 mg/dL (60-100); LDL Cholesterol Calculated 14 mg/dL (50-129); LDL HDL Ratio 0.22 RATIO (0.00-3.22); Thyroid Stimulating Hormone 1.54 uIU/mL (0.27-4.20); Triglycerides 82 mg/dL (0-150)
[2023-01-12 06:53] LABS: Estmated Average Glucose 111; Hemoglobin A1C 5.5 % (4.0-6.0)
[2023-01-12 06:54] LABS: NT Pro B Type Natriuretic Pept 5639 pg/mL (0-450)
[2023-01-12 07:14] LABS: C Reactive Protein 319.3 mg/L (0.0-4.9); Lipase 6 U/L (13-60)
[2023-01-12 07:20] LABS: Cortisol Random 36.19 ug/dL (2.47-19.5)
[2023-01-12 07:23] LABS: Troponin(5th) Baseline 97 ng/L (0-15)
[2023-01-12 07:26] LABS: Gamma Glutamyl Transferase 13 U/L (8-61)
[2023-01-12 07:44] LABS: Procalcitonin > 100.00 ng/mL (0-0.5)
--- NOTE | 2023-01-12 07:52 | ECG_ITS ---
[facility] Test Date: 2023-01-12 Pat Name: Adam Monsalve Department: Room: 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 Measurements Intervals [place] Rate: 88 P: 83 MO: 128 QRS: 77 QRSD: 97 T: 79 QT: 372 QTc: 452 Interpretive Statements SINUS RHYTHM Compared to ECG 01/12/2023 01:51:02 Ventricular premature complex(es) no longer present Electronically Signed On 01-12-2023 14:24:34 CDT by Jose Lozada M.D. [id number]
[2023-01-12] MEDS: budesonide 0.5 mg/2 mL Neb INHALATION (08:00)
[2023-01-12] MEDS: ipratropium-albuterol 3 mL Neb INHALATION ×3 (08:00→15:36)
--- NOTE | 2023-01-12 08:28 | PC.PHAR ---
pt states his takes care of his medications-called pts stefania she states whatever meds were entered on 12/28/22 were the meds shes sure he is still taking-pts read off the bottles of diclofenac sodium 75mg q12h prn-norco 5-325mg 1-2 tabs q4-6h prn and percocet 5-325mg 1-2 tabs q4h prn-ext med history shows prednisone 20mg take 40mg daily filled 12/24/22 30d/s and flomax 0.4mg take 0.8mg daily filled 12/31/22 90d/s pts states she thinks the pt is still taking-pts stefania states she thinks the pt is still taking the otc items that were entered on 12/28/22-notes are made in the pharmacy comments
[2023-01-12 09:08] LABS: Troponin 5 2HR 85.03 ng/L (0-15)
[2023-01-12 09:11] LABS: Troponin 5 2HR Delta -11.97 ABS# (0-10)
[2023-01-12] MEDS: piperacillin-tazobactam 3.375 GM in sodium chloride 0.9% (plus) 50 ML IV ×2 (09:13→19:56)
--- NOTE | 2023-01-12 09:44 | USCV_ITS ---
Adam Monsalve Age: 87 Gender: M : 1935 Exam Date: 01/12/2023 14:35 Ordering Phys: Rich Hughes MD Technologist: Leo Angel Exam Location: [facility] [place], [place] Indication: CHF BP: 180 / 71 HR: 74 Rhythm: Sinus Technical Quality: Adequate MEASUREMENTS (Male / Female) Normal Values 2D ECHO LVOT Diameter 2.0 cm LV Ejection Fraction MOD 2C 62.9 % LV Ejection Fraction 2C AL 62.0 % LA Diameter 3.1 cm LA Width 3.2 cm LA Height 4.7 cm RA Width 3.6 cm RA Height 4.6 cm Aorta at Sinotubular Diameter 2.3 cm IVC Diameter 1.9 cm M-MODE Aortic Annulus Diameter 2.7 cm LA Ao Ratio MM 1.1 MV E Point Septal Separation 0.5 cm DOPPLER AV Peak Velocity 157.7 cm/s LVOT Peak Velocity 83.0 cm/s AV Area Cont Eq vti 1.7 cm squared AV Area Cont Eq pk 1.7 cm squared MV Peak Velocity 122.0 cm/s MV Area PHT 5.8 cm squared Mitral E to A Ratio 0.8 MV E' Velocity 38.0 cm/s Mitral E to MV E' Ratio 9.5 Mitral E to LV E' Lateral Ratio 10.0 Mitral E to LV E' Septal Ratio 9.0 TR Peak Velocity 423.0 cm/s TR Peak Gradient 71.6 mmHg TR Mean Velocity 283.5 cm/s TR Mean Gradient 37.3 mmHg TR Velocity Time Integral 105.2 cm Right Atrial Pressure 8.0 mmHg Pulmonary Artery Systolic Pressu 79.6 mmHg PV Peak Velocity 79.0 cm/s RV Acceleration Time 0.1 s RV Ejection Time 0.3 s RV AcT/ET 0.3 FINDINGS Left Ventricle Normal left ventricular size and systolic function, EF 58 %. No regional wall motion abnormalities. Grade I/IV diastolic dysfunction (abnormal relaxation filling pattern), normal to mildly elevated filling pressures. Right Ventricle Normal right ventricular size and systolic function. Right Atrium Mildly increased right atrial size. Left Atrium Interatrial septum appears to be bulging to the right sidemildly increased left atrial size. Mitral Valve Thickened mitral valve. Trace of mitral valve regurgitation. Aortic Valve Thickened aortic valve. Tricuspid Valve Moderate tricuspid valve regurgitation. Estimated pulmonary artery peak systolic pressure 80 mmHg with a mean PA pressure of 46 mmHg Pulmonic Valve Pulmonic valve not well visualized. Pericardium Normal pericardium without effusion. Aorta Normal ascending aorta dimension. IVC The inferior vena cava appears normal. CONCLUSIONS Normal left ventricular size and systolic function, EF 58 %. No regional wall motion abnormalities. Grade I/IV diastolic dysfunction (abnormal relaxation filling pattern), normal to mildly elevated filling pressures. Mild biatrial enlargementThickened mitral valve. Trace of mitral valve regurgitation. Thickened aortic valve. Moderate tricuspid valve regurgitation. Severe pulmonary pulmonary hypertension with a peak systolic pressure of 80 mmHg with a mean pressure of 46 mmHg. There is no pericardial effusion. There are no intracardiac masses. No similar previous studies are available for comparison Dr Derek Alvarez MD [facility] (Electronically Signed) Final Date: 12 Jan 2023 23:48 S
[2023-01-12 10:41] LABS: C Reactive Protein 329.4 mg/L (0.0-4.9); Iron 6 ug/dL (59-158); Percent Saturation 5.4 % (20-50); Total Iron Binding Capacity 110 mcg/dl; Unsaturated Iron Binding 104 ug/dL (112-347)
[2023-01-12 11:01] LABS: Vitamin B12 870 pg/mL (232-1245)
[2023-01-12] MEDS: acetylcysteine 200 mg/mL MDV 10 mL 100 MG INHALATION ×2 (11:37→15:36)
[2023-01-12 11:47] LABS: D Dimer 2.33 ug/mIFEU (0-0.59)
[2023-01-12 11:51] LABS: Troponin 5 6HR 83.94 ng/L (0-15)
--- NOTE | 2023-01-12 11:52 | ECG_ITS ---
[facility] Test Date: 2023-01-12 Pat Name: Adam Monsalve Department: Room: [facility] Gender: Male Skoog Operator: : 1935 Requested By: Bruce Dickey Order Number: [id number] Reading MD: Jose Lozada M.D. Measurements Intervals [place] Rate: 85 P: 88 FL: 125 QRS: 91 QRSD: 97 T: 74 QT: 381 QTc: 455 Interpretive Statements SINUS RHYTHM BORDERLINE RIGHT AXIS DEVIATION [QRS AXIS > 90] Compared to ECG 01/12/2023 06:46:56 No significant changes Electronically Signed On 01-12-2023 14:24:47 CDT by Jose Lozada M.D. [id number]
[2023-01-12 15:37] LABS: Adenovirus Not Detected (NOT DETECT); Chlamydia Pneumoniae Not Detected (NOT DETECT); Coronavirus 229E,HKU1,NL63,OC4 Not Detected (NOT DETECT); Human Metapneumovirus Not Detected (NOT DETECT); Human Rhinovirus/Enterovirus Not Detected (NOT DETECT); Influenza A Not Detected (NOT DETECT); Influenza A H1 Not Detected (NOT DETECT); Influenza A H1-2009 Not Detected (NOT DETECT); Influenza A H3 Not Detected (NOT DETECT); Influenza B Not Detected (NOT DETECT); Mycoplasma Pneumoniae Not Detected (NOT DETECT); Parainfluenza Virus Type 1 Not Detected (NOT DETECT); Parainfluenza Virus Type 2 Not Detected (NOT DETECT); Parainfluenza Virus Type 3 Not Detected (NOT DETECT); Parainfluenza Virus Type 4 Not Detected (NOT DETECT); Respiratory Syncytial Virus A Not Detected (NOT DETECT); Respiratory Syncytial Virus B Not Detected (NOT DETECT); SARS-COV-2 Not Detected (NOT DETECT)
--- NOTE | 2023-01-12 17:15 | PC.NURSE ---
Transfer Note Patient transferred to CSU room 112-2 from ICU via bed. Handoff report given to TORSTEN Lacy. Patient oriented to environment and equipment. Covering service notified. Orders reviewed and will continue to monitor. Family notified. Patient is alert/oriented x4 upon transfer with NS infusing at 75 mls/hr, please see MAR for detail. Multiple skin issues noted, please see wound assessment for detail. All patient belongings transferred with patient and placed at bedside.
--- NOTE | 2023-01-12 18:08 | PC.NURSE ---
received from icu into room 112-2 at 1725.report received.complete 3 person transfer from bed to bed.alert and oriented x 3.sr on monitor.bp stable.oriented to room environment.instructed to notify staff for any chest pain,pain,sob,or for any concerns or needs at all.pt verb understanding of instructions
--- NOTE | 2023-01-12 18:36 | W.PM.EVENTAC ---
Event Note Event Note: Admitted overnight. H&P and labs appreciated. Patient admitted last night in septic shock requiring multiple fluid boluses and acute metabolic encephalopathy secondary UTI and acute renal failure along with hyponatremia. Examination patient seen in ICU. Sitting comfortably in bed. Hard of hearing. Patient is awake and alert. Able to have complete conversation. Metabolic encephalopathy seems to have resolved. Mean artery pressure has remained over 65. Monzon replaced in the ER last night. Follow-up blood cultures, urine culture. Check MRSA swab. Respiratory viral panel negative. Sputum culture pending. Concern for aspiration pneumonia. Speech evaluation. Modified barium swallow. Advance diet accordingly. For now continue with vancomycin and Zosyn as per creatinine clearance. Monitor urine output. Strict input output charting. Check iron panel, vitamin B12, folate, CRP, proBNP. Check procalcitonin. Awaiting echocardiogram results. DuoNebs every 6 hour, budesonide twice daily, Mucomyst every 6 hours. If blood pressure continues to remain over 140/90 will add amlodipine 5 mg oral daily.
[2023-01-12] MEDS: amlodipine 10 mg Tablet 5 MG PO (19:57)
[2023-01-13] VITALS (17 sets, daily range): BP systolic 127–153; BP diastolic 55–73; PULSE 60–78; RESP 14–24; TEMP 36.6–37.2; O2SAT 96–99
[2023-01-13] MEDS: ipratropium-albuterol 3 mL Neb INHALATION ×2 (03:33→08:23)
[2023-01-13 05:33] LABS: Alanine Aminotransferase 33 U/L (0-41); Albumin Level 2.1 g/dL (3.5-5.2); Alkaline Phosphatase 75 U/L (40-130); Anion Gap 15.6 (5-19); Aspartate Amino Transferase 82 U/L (0-40); Blood Urea Nitrogen 21 mg/dL (8-23); Carbon Dioxide 21 mmol/L (22-29); Chloride 105 mmol/L (98-107); Globulin 2.4 g/dL (1.3-4.6); Glucose 66 mg/dL (65-115); Osmolality Calculated 287 mOsm/kg (285-295); Potassium 3.6 mmol/L (3.5-5.1); Sodium 138 mmol/L (136-145); Total Bilirubin 0.9 mg/dL (0.15-1.2); Total Protein 4.5 g/dL (6.6-8.7)
[2023-01-13] MEDS: pantoprazole 40 mg SDV IVP ×2 (05:33→19:45)
[2023-01-13 05:50] LABS: Basophils % 0.1 %; Eosinophils % 0.1 %; Hematocrit 32.1 % (42.0-52.0); Hemoglobin 10.5 g/dL (11.7-16.6); Lymphocytes # 0.7 10^3/uL (0.8-4.8); Lymphocytes % 6.1 %; Mean Corpuscular HGB Conc 32.7 g/dL (30.0-36.0); Mean Corpuscular Volume 94.7 fl (80-94); Mean Platelet Volume 9.8 fL (7.4-10.4); Monocytes # 0.3 10^3/uL (0.2-0.9); Monocytes % 3.2 %; Neutrophils # 9.62 10^3/uL (1.8-7.7); Neutrophils % 89.9 %; Nucleated Red Blood Cells % 0 %; Platelet Count 124 10^3/cmm (130-400); Red Blood Count 3.39 10^6/uL (4.1-5.3); Red Cell Distribution Width 14.9 % (12.1-15.1); White Blood Count 10.7 10^3/uL (4.0-10.0)
[2023-01-13] MEDS: piperacillin-tazobactam 3.375 GM in sodium chloride 0.9% (plus) 50 ML IV ×2 (07:33→16:31)
[2023-01-13] MEDS: enoxaparin 30 mg/0.3 mL Syringe SUBCUT (07:34)
[2023-01-13] MEDS: budesonide 0.5 mg/2 mL Neb INHALATION (08:23)
[2023-01-13 10:34] LABS: Vancomycin Random < 4.0 ug/mL (20.0-40.0)
--- NOTE | 2023-01-13 10:44 | PC.PHAR ---
PHARMACY TO DOSE CONSULT With the patient's CrCl improving and a random trough being drawn and resulting in <4, we have recalculated the patient's dose at 750mg every 24 hours (increased from q48h). With the improvement, this predicts the peak at 42.1 and the trough at 20 but we are certain the patient's renal function will continue to improve and bring these back into ideal levels. A trough will be drawn before the 4th dose. The Zosyn dose was also increased to every 8 hours and the lovenox increased to 40mg with the improvement. Pharmacy will continue to monitor the patient's renal function and make adjustments as needed. Please let us know if there is anything else that we need to do. Thanks, David Kulkarni, Pharm.D
[2023-01-13] MEDS: tamsulosin 0.4 mg Capsule 0.8 MG PO (10:59)
[2023-01-13] MEDS: amlodipine 10 mg Tablet 5 MG PO (10:59)
[2023-01-13] MEDS: vancomycin 750 MG in sodium chloride 0.9% 250 ML 250 MG IV (12:39)
--- NOTE | 2023-01-13 15:49 | PM.PN ---
Subjective Subjective: No acute events overnight. Today morning patient seen in C[facility]. Laying comfortably in bed. Has remained hemodynamically stable and afebrile. Awake and alert. Saturating more than 95% on 2 L. States he is feeling fairly weak. Denies any nausea, vomiting but having episodes of diarrhea. Vitals/I&O/Wt Last Vital Signs Temp 98.6 F 01/13/23 11:33 Pulse 78 01/13/23 15:15 Resp 18 01/13/23 15:15 BP 127/72 01/13/23 11:33 Pulse Ox 99 01/13/23 15:15 O2 Del Method Nasal Cannula 01/13/23 15:15 O2 Flow Rate 2 01/13/23 15:15 01/13/23 01/13/23 01/13/23 06:59 14:59 22:59 Intake Total 50 / 1358.75 240 / 240 Output Total 850 / 850 Balance 50 / 508.75 -610 / -610 Weight last 48 hrs Weight 46.72 kg Weight 54.431 kg Physical Exam Narrative: General: No acute distress, AO x3, NC oxygen supplementation, hard of hearing, chronically sick appearing HEENT: PERRLA, pupils bilaterally equal and reactive Chest: Bronchial breath sounds all over lung de souza with decreased air entry bilaterally in lower zone and occasional rhonchi over lung de souza CVS: S1-S2 regular, pansystolic murmur present in fourth intercostal space retrosternal, no tachycardia, no gallops, no rubs Abdomen: Soft, nontender, no organomegaly, bowel sounds present, morbidly obese Neuro: No focal deficits, no facial deformity, AO x3, power 5/5 in all limbs Data 01/13/23 04:57 01/13/23 04:57 Micro: Microbiology 01/12/23 19:45 Gram Stain - Final Sputum - Expectorated Sputum 01/12/23 12:55 MRSA Culture - Final Nose 01/12/23 01:41 Urine Culture - Preliminary Urine,Clean Catch Gram Negative Rods 01/12/23 02:04 Blood Culture - Preliminary Blood NEGATIVE TO DATE 01/12/23 01:46 Blood Culture - Preliminary Blood NEGATIVE TO DATE 01/12/23 01:41 Bacterial Antigens - Final Urine Kidney 01/12/23 01:41 Legionella Urinary Antigen - Final Unknown Source A&P Assessment and plan (1) Septic shock: Resolved. Hemodynamically stable. Keep mean artery pressure 65. Follow-up blood culture. Urine culture growing gram-negative rods. Follow-up sputum culture. MRSA negative. Stop vancomycin. Continue with Zosyn. Complaining of diarrhea. Check stool studies. Patient well-hydrated now. Hold off on any further IV fluids. 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 Monzon changed in the ER. Follow-up urine culture. Will de-escalate antibiotics as per urine culture results. (3) Pneumonia: Concerns for aspiration pneumonia on CT chest. Speech evaluation advance diet accordingly. Continue with Zosyn as above. DuoNebs every 6 hours, budesonide twice daily, Mucomyst every 6 hours. (4) Acute renal failure: Resolved. Creatinine back down to 1. Monitor urine output. Monitor electrolytes. CT abdomen pelvis negative for obstructive nephropathy. (5) Hyponatremia: Most likely secondary to dehydration. Resolved with IV fluids. Continue to monitor. (6) Hyperbilirubinemia: (7) Acute encephalopathy: Resolved. Patient at baseline mentation. (8) Lactic acidosis: Plan Hypertension: Goal blood pressure less than 140/90 mmHg with mean over 65. Blood pressure standing up. Start patient on amlodipine 5 mg oral daily. Monitor blood pressures and adjust medications accordingly. Full code. Protonix for PUD prophylaxis Mechanical soft diet Lovenox for DVT prophylaxis. PT evaluation. Discharge plan: Plan to discharge home with home health versus SNF as per PT evaluation. Patient seems significantly deconditioned. Patient will most likely be discharged with Monzon in place. Attestations Medical Necessity Statement*: Requires further hospitalization for management of severe sepsis in setting of complicated UTI, aspiration pneumonia while safe discharge planning is sought Diagnoses Septic shock A41.9; R65.21 UTI (urinary tract infection) N39.0 Pneumonia J18.9 Acute renal failure N17.9 Hyponatremia E87.1 Hyperbilirubinemia E80.6 Acute encephalopathy G93.40 Lactic acidosis E87.20
[2023-01-14] VITALS (17 sets, daily range): BP systolic 119–147; BP diastolic 50–71; PULSE 63–80; RESP 15–26; TEMP 36.4–37.1; O2SAT 90–99
[2023-01-14] MEDS: piperacillin-tazobactam 3.375 GM in sodium chloride 0.9% (plus) 50 ML IV ×3 (00:01→16:05)
--- NOTE | 2023-01-14 00:31 | PC.PHAR ---
Vancomycin Trough scheduled for 01/16 1000, please hold 01/16 1100 dose until drawn. Will continue to follow. Thank you, [facility]
[2023-01-14] MEDS: pantoprazole 40 mg SDV IVP (04:03)
[2023-01-14] MEDS: oxyCODONE-APAP 5-325 mg Tablet 1 TAB PO (04:12)
[2023-01-14 04:54] LABS: Basophils % 0.1 %; Eosinophils # 0.1 10^3/uL (0.0-0.8); Eosinophils % 0.6 %; Lymphocytes # 0.6 10^3/uL (0.8-4.8); Lymphocytes % 7.8 %; Mean Corpuscular HGB Conc 32.3 g/dL (30.0-36.0); Mean Corpuscular Volume 93.1 fl (80-94); Mean Platelet Volume 10.1 fL (7.4-10.4); Monocytes # 0.4 10^3/uL (0.2-0.9); Monocytes % 4.5 %; Neutrophils # 7.11 10^3/uL (1.8-7.7); Neutrophils % 86.4 %; Nucleated Red Blood Cells % 0 %; Platelet Count 119 10^3/cmm (130-400); Red Blood Count 3.33 10^6/uL (4.1-5.3); Red Cell Distribution Width 14.4 % (12.1-15.1); White Blood Count 8.2 10^3/uL (4.0-10.0)
[2023-01-14 05:11] LABS: Alanine Aminotransferase 40 U/L (0-41); Alkaline Phosphatase 52 U/L (40-130); Aspartate Amino Transferase 61 U/L (0-40); Blood Urea Nitrogen 17 mg/dL (8-23); Calcium 8.2 mg/dL (8.5-10.5); Carbon Dioxide 25 mmol/L (22-29); Chloride 104 mmol/L (98-107); Globulin 2.4 g/dL (1.3-4.6); Glucose 89 mg/dL (65-115); Osmolality Calculated 287 mOsm/kg (285-295); Sodium 138 mmol/L (136-145); Total Bilirubin 1.1 mg/dL (0.15-1.2); Total Protein 4.4 g/dL (6.6-8.7)
--- NOTE | 2023-01-14 07:05 | PC.NURSE ---
Messaged Dr Cruz regarding patients daughters request that patient be seen by and Dr lizarraga as the patient was due to bee seen for follow ups but the patient ended up sick and was unable to be seen before coming to the hospital. Passed on to day shift Jazmin RN about family request.
[2023-01-14] MEDS: enoxaparin 40 mg/0.4 mL Syringe SUBCUT (07:30)
--- NOTE | 2023-01-14 07:43 | PC.NURSE ---
Patient tells me the nurse gave him something over the counter this morning for both an antibiotic and pain. The MAR shows otherwise. It shows that patient received oxycodone but patient states he will not take oxycodone and that it causes him a lot of problems.
[2023-01-14] MEDS: amlodipine 10 mg Tablet 5 MG PO (08:59)
[2023-01-14] MEDS: tamsulosin 0.4 mg Capsule 0.8 MG PO (08:59)
--- NOTE | 2023-01-14 10:06 | PC.CHAP ---
Pastoral Care Encounter/Spiritual Assessment Type of Contact [] Declined cutting pressman visit [] Patient/Family/Request visit [] Outpatient visit [] Follow-up visit [] Physician referral [] Code/Alert [x] Routine visit [] Staff referral [] Actively dying [] Patient sleeping [] Family support [] [] Out of room [] Palliative care [] [x] Receiving care in room [] Pre-surgical visit [] Trauma [] Long length of stay [] ICU visit [] Other: Relational/Emotional Strength [] Patient feels connected with others/family/visitors/staff [] Distress [] Loneliness/isolation [] Abandonment Spirituality of Patient [] Person of Jennifer [] Attends Pentecostal of their Jennifer [] Believes in Prayer [] Reads Bible or Methodist materials [] There are Spiritual issues to be addressed Clinical Laboratory Technologist Interventions [x] Prayer [] Active listening [] Non-anxious presence [] Spiritual/emotional support [] Crisis/trauma care [] Spiritual counseling [] Bereavement support [] Provided bereavement packet [] Provided Bible/devotional materials [] Provided toy/stuffed animal, coloring book to patient or family member [] Provided Communion [] Anointing/[place] [] Salvation [] Completed spiritual assessment [] Other: Impact on Illness or Injury [] Angry [] Fearful [] Anxious [] Often cries [] Exhaustion [] Unable to work [] Unable to attend synagogue [] Unable to walk/stand [] Unable to read [] Unable to drive [] Unable to eat/drink [] Unable to sleep [] Unable to be with family [] Patient intubated [] Other: Summary Time spent with patient
--- NOTE | 2023-01-14 14:33 | P.PN_ITS ---
Subjective Subjective: No acute events overnight. Patient has remained hemodynamically stable and afebrile on room air. Denies any nausea, vomiting, headache. States feeling better though still continues to remain weak. Sat up in chair for 3 to 4 hours yesterday and today morning. Appreciate PT evaluation. Vitals/I&O/Wt Last Vital Signs Temp 98.4 F 01/14/23 12:46 Pulse 80 01/14/23 12:46 Resp 15 01/14/23 12:46 BP 147/61 01/14/23 12:46 Pulse Ox 91 01/14/23 12:46 O2 Del Method Room Air 01/14/23 11:32 O2 Flow Rate 2 01/13/23 15:15 01/13/23 01/14/23 01/14/23 22:59 06:59 14:59 Intake Total 1470 / 1710 170 / 1880 410 / 410 Output Total 500 / 1350 500 / 1850 Balance 970 / 360 -330 / 30 410 / 410 Physical Exam Narrative: General: No acute distress, AO x3, NC oxygen supplementation, hard of hearing, chronically sick appearing HEENT: PERRLA, pupils bilaterally equal and reactive Chest: Bronchial breath sounds all over lung de souza with decreased air entry isaiah aterally in lower zone and occasional rhonchi over lung de souza CVS: S1-S2 regular, pansystolic murmur present in fourth intercostal space retrosternal, no tachycardia, no gallops, no rubs Abdomen: Soft, nontender, no organomegaly, bowel sounds present, morbidly obese Neuro: No focal deficits, no facial deformity, AO x3, power 5/5 in all limbs Data 01/14/23 04:22 01/14/23 04:22 Micro: Microbiology 01/12/23 19:45 Gram Stain - Final Sputum - Expectorated Sputum Sputum Culture - Preliminary 01/12/23 01:41 Urine Culture - Preliminary Urine,Clean Catch Gram Negative Rods Gram Negative Rods#2 01/12/23 12:55 MRSA Culture - Final Nose A&P Assessment and plan (1) Septic shock: Resolved. Hemodynamically stable. Keep mean artery pressure 65. Follow-up blood culture. Urine culture growing gram-negative rods. Follow-up sputum culture. MRSA negative. Stop vancomycin. Continue with Zosyn. Complaining of diarrhea. Check stool studies. Patient well-hydrated now. Hold off on any further IV fluids. 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 Monzon changed in the ER. Follow-up urine culture. Will de-escalate antibiotics as per urine culture results. (3) Pneumonia: Concerns for aspiration pneumonia on CT chest. Speech evaluation advance diet accordingly. Continue with Zosyn as above. DuoNebs every 6 hours, budesonide twice daily, Mucomyst every 6 hours. (4) Acute renal failure: Resolved. Creatinine back down to 1. Monitor urine output. Monitor electrolytes. CT abdomen pelvis negative for obstructive nephropathy. (5) Hyponatremia: Most likely secondary to dehydration. Resolved with IV fluids. Continue to monitor. (6) Hyperbilirubinemia: (7) Acute encephalopathy: Resolved. Patient at baseline mentation. (8) Lactic acidosis: Plan Hypertension: Goal blood pressure less than 140/90 mmHg with mean over 65. Blood pressure standing up. Start patient on amlodipine 5 mg oral daily. Monitor blood pressures and adjust medications accordingly. Full code. Protonix for PUD prophylaxis Mechanical soft diet Lovenox for DVT prophylaxis. PT evaluation. Plan for the day: Follow-up urine and blood culture. Urine culture for now growing 2 separate kind of gram-negative's. Continue with Zosyn. Stop vancomycin. Continue with amlodipine. Goal blood pressure less than 140/90 mmHg. Increase amlodipine accordingly. Voiding trial. Continue with home dose of Flomax. Add finasteride. If patient fails voiding trial will try to consult Dr. Blakely. Patient was to follow-up with Dr. Blakely as an outpatient but could not as he felt sick and was admitted to the hospital through ER. Diet as per speech evaluation. Repeat potassium 80 mg orally. Monitor potassium daily. Discharge plan: Appreciate PT evaluation. Plan to discharge home with home health. Patient will need to follow-up as an outpatient with orthopedics. Attestations Medical Necessity Statement*: Requires further hospitalization for management of sepsis in setting of UTI and aspiration pneumonia while diet is changed accordingly and culture results are followed up by CM discharge planning is sought. Diagnoses Septic shock A41.9; R65.21 UTI (urinary tract infection) N39.0 Pneumonia J18.9 Acute renal failure N17.9 Hyponatremia E87.1 Hyperbilirubinemia E80.6 Acute encephalopathy G93.40 Lactic acidosis E87.20
--- NOTE | 2023-01-14 18:26 | PC.NURSE ---
Spoke with daughter of the patient in the 1800 hour on 01/14 and explained plan of care and why Dr. Rivera and Dr. Blakely has not been by to see patient this hospital stay. Dr. Hughes said will not see patients inpatient. Sister verbalized understanding and was very thankful to caption writer for explaining.
--- NOTE | 2023-01-14 18:42 | PC.NURSE ---
Dr. Hughes asked me to bladder scan patient after he voided again. I bladder scanned once after urination and it came back at 68ml. He has not been up to void again that I am aware of. Family is at bedside currently.
[2023-01-14] MEDS: finasteride 5 mg Tablet PO (20:52)
[2023-01-14] MEDS: budesonide 0.5 mg/2 mL Neb INHALATION (20:59)
[2023-01-14] MEDS: ipratropium-albuterol 3 mL Neb INHALATION (20:59)
[2023-01-14] MEDS: acetylcysteine 200 mg/mL MDV 10 mL 100 MG INHALATION (20:59)
--- NOTE | 2023-01-14 23:50 | PC.NURSE ---
Patient complaining of feeling pressure from not being able to urinate. The patient last urinated at around or after 1pm. The patient has got up to the bathroom and commode three times with no effect. The patient was bladderscanned at this time. Bladderscan revealed 372ml in bladder. Nurse spoke with regarding urine retention and gave order to reinsert the swanson. The patient has history of BPH and urine retention, unable to find what size spanish was previously used but nurse will obtain coude cath from supervisor dehydrogenation for swanson insertion.
[2023-01-15] VITALS (16 sets, daily range): BP systolic 119–141; BP diastolic 66–87; PULSE 47–88; RESP 16–22; TEMP 36.7; O2SAT 91–96
[2023-01-15] MEDS: piperacillin-tazobactam 3.375 GM in sodium chloride 0.9% (plus) 50 ML IV ×4 (00:08→23:40)
[2023-01-15] MEDS: budesonide 0.5 mg/2 mL Neb INHALATION (07:49)
[2023-01-15] MEDS: ipratropium-albuterol 3 mL Neb INHALATION ×2 (07:49→11:30)
[2023-01-15] MEDS: acetylcysteine 200 mg/mL MDV 10 mL 100 MG INHALATION ×2 (07:50→11:30)
[2023-01-15 07:55] LABS: Basophils % 0.2 %; Eosinophils % 0.5 %; Hematocrit 32.3 % (42.0-52.0); Hemoglobin 10.3 g/dL (11.7-16.6); Lymphocytes # 0.6 10^3/uL (0.8-4.8); Lymphocytes % 9.4 %; Mean Corpuscular HGB Conc 31.9 g/dL (30.0-36.0); Mean Corpuscular Hemoglobin 30.1 pg (28.0-34.0); Mean Corpuscular Volume 94.4 fl (80-94); Mean Platelet Volume 10.2 fL (7.4-10.4); Monocytes # 0.3 10^3/uL (0.2-0.9); Neutrophils # 5.09 10^3/uL (1.8-7.7); Neutrophils % 84.1 %; Nucleated Red Blood Cells % 0 %; Platelet Count 159 10^3/cmm (130-400); Red Blood Count 3.42 10^6/uL (4.1-5.3); Red Cell Distribution Width 14.4 % (12.1-15.1); White Blood Count 6.1 10^3/uL (4.0-10.0)
[2023-01-15] MEDS: enoxaparin 40 mg/0.4 mL Syringe SUBCUT (08:17)
[2023-01-15] MEDS: pantoprazole DR 40 mg Tablet PO (08:18)
[2023-01-15] MEDS: amlodipine 10 mg Tablet 5 MG PO (08:18)
[2023-01-15] MEDS: tamsulosin 0.4 mg Capsule 0.8 MG PO (08:18)
[2023-01-15 08:19] LABS: Alanine Aminotransferase 49 U/L (0-41); Alkaline Phosphatase 48 U/L (40-130); Anion Gap 11.8 (5-19); Aspartate Amino Transferase 50 U/L (0-40); Blood Urea Nitrogen 11 mg/dL (8-23); Calcium 8.1 mg/dL (8.5-10.5); Carbon Dioxide 26 mmol/L (22-29); Chloride 103 mmol/L (98-107); Globulin 2.7 g/dL (1.3-4.6); Glucose 93 mg/dL (65-115); Osmolality Calculated 285 mOsm/kg (285-295); Sodium 138 mmol/L (136-145); Total Bilirubin 0.9 mg/dL (0.15-1.2); Total Protein 4.7 g/dL (6.6-8.7)
[2023-01-15 08:40] LABS: Potassium 2.8 mmol/L (3.5-5.1)
[2023-01-15] MEDS: potassium chloride ER 20 mEq Tablet 80 MEQ PO (09:25)
--- NOTE | 2023-01-15 15:06 | PC.SOCIAL ---
Imm update Imm updated with patient at bedside. copy of page 2 provided. Patient verbalized understanding. Copy in chart initialed, dated, and timed.
--- NOTE | 2023-01-15 17:02 | P.PN_ITS ---
Subjective Subjective: No acute events overnight. Patient has remained hemodynamically stable and afebrile on room air. Patient failed voiding trial last night and Monzon had to be placed again. Vitals/I&O/Wt Last Vital Signs Temp 98.1 F 01/15/23 08:00 Pulse 76 01/15/23 15:12 Resp 16 01/15/23 15:12 BP 133/87 01/15/23 12:50 Pulse Ox 93 01/15/23 11:33 O2 Del Method Room Air 01/15/23 15:12 O2 Flow Rate 95 01/15/23 15:12 01/15/23 01/15/23 01/15/23 06:59 14:59 22:59 Intake Total 250 / 950 350 / 350 320 / 670 Output Total 800 / 870 400 / 400 Balance -550 / 80 350 / 350 -80 / 270 Physical Exam Narrative: General: No acute distress, AO x3, NC oxygen supplementation, hard of hearing, chronically sick appearing HEENT: PERRLA, pupils bilaterally equal and reactive Chest: Bronchial breath sounds all over lung de souza with decreased air entry bilaterally in lower zone and occasional rhonchi over lung de souza CVS: S1-S2 regular, pansystolic murmur present in fourth intercostal space retrosternal, no tachycardia, no gallops, no rubs Abdomen: Soft, nontender, no organomegaly, bowel sounds present, morbidly obese Neuro: No focal deficits, no facial deformity, AO x3, power 5/5 in all limbs Urinary Catheter Management: Coude: Cath Placed During This Visit: yes Reason for Continuing Indwelling Catheter: Acute Urinary Retention or Obstruction Urinary Catheter Date of Insertion: 01/15/23 Urinary Catheter Time of Insertion: 00:50 Data 01/15/23 06:04 01/15/23 06:04 Micro: Microbiology 01/15/23 05:00 Stool Lactoferrin - Final Stool Enteric Pathogens (PCR) - Final Parasite Antigen Panel - Final C.difficile Toxin B Gene (PCR) - Final Occult Blood (FIT) - Final 01/12/23 01:41 Urine Culture - Preliminary Urine,Clean Catch Pseudo fluorescens/putida Gram Negative Rods#2 01/12/23 19:45 Gram Stain - Final Sputum - Expectorated Sputum Sputum Culture - Preliminary A&P Assessment and plan (1) Septic shock: Resolved. Hemodynamically stable. Keep mean artery pressure 65. Follow-up blood culture. Urine culture growing gram-negative rods. Follow-up sputum culture. MRSA negative. Stop vancomycin. Continue with Zosyn. Complaining of diarrhea. Check stool studies. Patient well-hydrated now. Hold off on any further IV fluids. 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 Monzon changed in the ER. Follow-up urine culture. Will de-escalate antibiotics as per urine culture results. (3) Pneumonia: Concerns for aspiration pneumonia on CT chest. Speech evaluation advance diet accordingly. Continue with Zosyn as above. DuoNebs every 6 hours, budesonide twice daily, Mucomyst every 6 hours. (4) Acute renal failure: Resolved. Creatinine back down to 1. Monitor urine output. Monitor electrolytes. CT abdomen pelvis negative for obstructive nephropathy. (5) Hyponatremia: Most likely secondary to dehydration. Resolved with IV fluids. Continue to monitor. (6) Hyperbilirubinemia: (7) Acute encephalopathy: Resolved. Patient at baseline mentation. (8) Lactic acidosis: Plan Hypertension: Goal blood pressure less than 140/90 mmHg with mean over 65. Blood pressure standing up. Start patient on amlodipine 5 mg oral daily. Monitor blood pressures and adjust medications accordingly. Full code. Protonix for PUD prophylaxis Mechanical soft diet Lovenox for DVT prophylaxis. PT evaluation. Plan for the day: Follow-up blood culture and urine culture. Out of 2 gram- negative's in the urine culture only 1 has been identified and sensitivities are available only for 1 the other 1 should be available by tomorrow. Urine culture for now growing Pseudomonas susceptible to Levaquin. Continue Zosyn for now. Continue with amlodipine. Continue with Flomax and finasteride. Patient to follow-up with Dr. Reddy Rivera as an outpatient. Patient's care discussed in detail with his daughter over the phone. Repeat 80 mg of oral potassium. Recheck BMP in evening. Discharge plan: Plan to discharge in next 24 hours to back home with home health with Monzon catheter with advised to follow-up with Dr. Reddy Rivera as an outpatient within next 1 week. Attestations Medical Necessity Statement*: Requires further hospitalization for management of sepsis secondary to UTI in a patient with chronic Monzon while urine culture is followed up with safe disc harge planning Diagnoses Septic shock A41.9; R65.21 UTI (urinary tract infection) N39.0 Pneumonia J18.9 Acute renal failure N17.9 Hyponatremia E87.1 Hyperbilirubinemia E80.6 Acute encephalopathy G93.40 Lactic acidosis E87.20
[2023-01-15 18:28] LABS: Anion Gap 14.4 (5-19); Blood Urea Nitrogen 12 mg/dL (8-23); Calcium 8.5 mg/dL (8.5-10.5); Carbon Dioxide 26 mmol/L (22-29); Chloride 106 mmol/L (98-107); Glucose 132 mg/dL (65-115); Osmolality Calculated 298 mOsm/kg (285-295); Potassium 3.4 mmol/L (3.5-5.1); Sodium 143 mmol/L (136-145)
[2023-01-15] MEDS: finasteride 5 mg Tablet PO (20:53)
[2023-01-16] VITALS (13 sets, daily range): BP systolic 128–146; BP diastolic 71–88; PULSE 66–91; RESP 13–22; TEMP 36.8–36.9; O2SAT 94–98
--- NOTE | 2023-01-16 06:00 | PC.NURSE ---
Patient refused lab draw.
[2023-01-16] MEDS: acetylcysteine 200 mg/mL MDV 10 mL 100 MG INHALATION (07:14)
[2023-01-16] MEDS: ipratropium-albuterol 3 mL Neb INHALATION (07:14)
--- NOTE | 2023-01-16 08:15 | PC.NURSE ---
RN attempted to wake patient up to try to draw labs from patient and give patient's am medications. Patient was not happy with being woke up and does not want his labs or any IV medications. RN educated patient on the reason he was receiving the medications and typical hospital course of stay for pneumonia. Patient was still upset and wanting to be discharged. RN notified patient's dr. Who will discharge patient but would like him to receive this last dose of IV antibotics. Patient is agreeable to that.
[2023-01-16] MEDS: tamsulosin 0.4 mg Capsule 0.8 MG PO (08:32)
[2023-01-16] MEDS: amlodipine 10 mg Tablet 5 MG PO (08:32)
[2023-01-16] MEDS: pantoprazole DR 40 mg Tablet PO (08:32)
[2023-01-16] MEDS: piperacillin-tazobactam 3.375 GM in sodium chloride 0.9% (plus) 50 ML IV (09:41)
--- NOTE | 2023-01-16 10:10 | PM.DCS ---
Discharge Providers Date of Admission: 01/12/23 04:06 Date of Discharge: January 16, 2023 Attending Provider at Admission: Brcue Dickey MD Attending Provider at Discharge: Rich Hughes MD Primary Care Provider: Aravind Martin Diagnoses at Discharge Discharge Diagnosis (1) Septic shock: Status: Acute (2) UTI (urinary tract infection): Status: Acute (3) Pneumonia: Status: Acute (4) Acute renal failure: Status: Acute (5) Hyponatremia: Status: Acute (6) Hyperbilirubinemia: Status: Acute (7) Acute encephalopathy: Status: Acute (8) Lactic acidosis: Status: Acute Reason for Visit Reason for Visit: fall, fever, confusion Brief History: History as per HPI: Adam Monsalve is a 87 year old male with a past medical history of spinal stenosis, insomnia, chronic fatigue, BPH, white coat syndrome, chronic active smoker, history of peripheral vascular disease, history of urinary retention for which she is had a Monzon catheter placed in the emergency room who presents to [facility] due to weakness, fatigue, falls, fever currently patient is alert to person, not to place, not to time, he does follow commands, he is very hard of hearing history taking was difficult..? When asked him why he is here in the hospital, he tells me he is just weak all over he hurts all over, he feels tired all the time.? He also reports feeling feverish.? When asked him about details about his Monzon catheter he tells me he was holding onto urine but cannot give me any more details about if his Monzon catheter was changed, his Monzon catheter according to nursing staff has been present for the last 2 to 3 weeks.? I asked him if he feels short of breath, he tells me he feels short of breath all the time, when asked if he has abdominal pain, he tells me hurts all over his abdomen, denies diarrhea, no nausea, no vomiting.? Patient was found to have septic shock in the emergency room, MAP 65, focus of infection UTI, pneumonia, acute renal failure, lactic acidosis, is receiving his fluid bolus, MAP improving to greater than 65,, moved to ICU Hospital Course Hospital Course Patient was admitted to the ICU for further evaluation and management of severe sepsis requiring IV fluid boluses. Patient's blood pressure improved with IV fluid boluses and did not require Levophed. On admission there was a concern for aspiration pneumonia and UTI. As per the patient's daughter he has been having multiple episodes of vomiting at home for last 3 to 4 days hence there is a concern that he aspirated during one of the other episodes of vomiting. His blood cultures during hospitalization remain negative but urine culture grew Acinetobacter and Pseudomonas. He was continued on broad-spectrum antibiotics during hospitalization and continued to show gradual improvement. His altered mental status improved. His hemodynamics remained stable. Voiding trial was tried in the hospitalization but patient failed. He has been discharged hemodynamically stable condition on oral Levaquin for 5 more days for complicated UTI. He is to follow-up with Dr. Blakely as an outpatient within next 1 week for voiding trial and with Dr. Rivera for follow-up from recent back surgery. He is also being discharged with amlodipine 5 mg oral daily. He is to check his blood pressure daily at home and maintain a blood pressure diary and follow-up with a primary care provider within next 2 weeks for further adjustment of antihypertensives as needed. Physical Exam Narrative: General: No acute distress, AO x3, hard of hearing, chronically sick appearing HEENT: PERRLA, pupils bilaterally equal and reactive Chest: Bronchial breath sounds all over lung de souza with decreased air entry bilaterally in lower zone and occasional rhonchi over lung de souza CVS: S1-S2 regular, pansystolic murmur present in fourth intercostal space retrosternal, no tachycardia, no gallops, no rubs Abdomen: Soft, nontender, no organomegaly, bowel sounds present, morbidly obese Neuro: No focal deficits, no facial deformity, AO x3, power 5/5 in all limbs Urinary Catheter Management: Coude: Cath Placed During This Visit: yes Reason for Continuing Indwelling Catheter: Acute Urinary Retention or Obstruction Urinary Catheter Date of Insertion: 01/15/23 Urinary Catheter Time of Insertion: 00:50 Discharge Data Studies Completed and Pending Completed Studies During Hospitalization Category Date Time Status CT chest abdomen pelvis [[place] [id number] Cat Scan 01/12/23 05:49 Completed ] Stat CT head wo con* [id number] Stat Cat Scan 01/12/23 01:31 Completed XR chest 1V portable [id number] Stat Exams 01/12/23 01:23 [place] [id number] Routine Ultrasound 01/12/23 05:52 Completed CV. echo complete* [id number] Routine Ultrasound 01/12/23 09:44 Completed Pending at discharge Category Date Time Status Blood Culture Stat Lab 01/12/23 02:04 Results Complete Blood Count w/Auto AM LABS Lab 01/16/23 04:00 Ordered Comprehensive Metabolic Panel AM LABS Lab 01/16/23 04:00 Ordered Sputum Culture and Gram Stain Stat Lab 01/12/23 19:45 Results Radiology Impressions Chest X-Ray 01/12/23 01:23 IMPRESSION: Right basilar pneumonia should be followed to resolution. Head CT 01/12/23 01:31 IMPRESSION: 1. No acute intracranial abnormality. 2. Moderate age-related changes. Chest/Abdomen/Pelvis CT 01/12/23 05:49 IMPRESSION: 1. Dense consolidation throughout the right lower lobe consistent with pneumonia. 2. Mild nonspecific opacity in the left lung base associated with bronchial mucous plugging. Possible aspiration, infection or atelectasis. 3. Incidental findings above. IMPRESSION: 1. Bilateral adrenal edema. In the setting of pneumonia and sepsis, this finding is suspicious for adrenal congestion which is a sign of adrenal dysfunction and may precede adrenal hemorrhage. 2. Incidental findings above. ADDENDUM: 01/12/23 0829 THIS REPORT CONTAINS FINDINGS THAT MAY BE CRITICAL TO PATIENT CARE. The findings were verbally communicated via telephone conference with Dr Hughes at 8:27 AM CDT on 01/12/2023. The findings were acknowledged and understood. Microbiology 01/12/23 01:41 Urine,Clean Catch Urine Culture - Final Pseudo fluorescens/putida Acinetobacter lwoffii. 01/15/23 05:00 Stool Stool Lactoferrin - Final 01/15/23 05:00 Stool Enteric Pathogens (PCR) - Final 01/15/23 05:00 Stool Parasite Antigen Panel - Final 01/15/23 05:00 Stool C.difficile Toxin B Gene (PCR) - Final 01/15/23 05:00 Stool Occult Blood (FIT) - Final 01/12/23 19:45 Sputum - Expectorated Sputum Gram Stain - Final 01/12/23 19:45 Sputum - Expectorated Sputum Sputum Culture - Preliminary 01/12/23 12:55 Nose MRSA Culture - Final 01/12/23 02:04 Blood Blood Culture - Preliminary NEGATIVE TO DATE 01/12/23 01:46 Blood Blood Culture - Preliminary NEGATIVE TO DATE 01/12/23 01:41 Urine Kidney Bacterial Antigens - Final 01/12/23 01:41 Unknown Source Legionella Urinary Antigen - Final Laboratory Results WBC 6.1 10^3/uL (4.0-10.0) 01/15/23 06:04 RBC 3.42 10^6/uL (4.1-5.3) L 01/15/23 06:04 Hgb 10.3 g/dL (11.7-16.6) L 01/15/23 06:04 Hct 32.3 % (42.0-52.0) L 01/15/23 06:04 MCV 94.4 fl (80-94) H 01/15/23 06:04 MCH 30.1 pg (28.0-34.0) 01/15/23 06:04 MCHC 31.9 g/dL (30.0-36.0) 01/15/23 06:04 RDW 14.4 % (12.1-15.1) 01/15/23 06:04 Plt Count 159 10^3/cmm (130-400) D 01/15/23 06:04 MPV 10.2 fL (7.4-10.4) 01/15/23 06:04 Neut % (Auto) 84.1 % 01/15/23 06:04 Lymph % (Auto) 9.4 % 01/15/23 06:04 [place] % (Auto) 5.0 % 01/15/23 06:04 Eos % (Auto) 0.5 % 01/15/23 06:04 Baso % (Auto) 0.2 % 01/15/23 06:04 Neut # (Auto) 5.09 10^3/uL (1.8-7.7) 01/15/23 06:04 Lymph # (Auto) 0.6 10^3/uL (0.8-4.8) L 01/15/23 06:04 [place] # (Auto) 0.3 10^3/uL (0.2-0.9) 01/15/23 06:04 Eos # (Auto) 0.0 10^3/uL (0.0-0.8) 01/15/23 06:04 Baso # (Auto) 0.0 10^3/uL (0.0-0.1) 01/15/23 06:04 Nucleated RBC % (auto) 0 % 01/15/23 06:04 Nucleated RBCs # 0.0 /100WBC 01/15/23 06:04 D-Dimer 2.33 ug/mIFEU (0-0.59) H 01/12/23 11:26 Sodium 143 mmol/L (136-145) 01/15/23 17:29 Potassium 3.4 mmol/L (3.5-5.1) L 01/15/23 17:29 Chloride 106 mmol/L (98-107) 01/15/23 17:29 Carbon Dioxide 26 mmol/L (22-29) 01/15/23 17:29 Anion Gap 14.4 (5-19) 01/15/23 17:29 BUN 12 mg/dL (8-23) 01/15/23 17:29 Creatinine 0.8 mg/dL (0.7-1.2) 01/15/23 17:29 GFR Calculation Not Reportable 01/15/23 17:29 Glucose 132 mg/dL (65-115) H 01/15/23 17:29 Estimat Average Glucose 111 01/12/23 05:53 Hemoglobin A1c 5.5 % (4.0-6.0) 01/12/23 05:53 Calculated Osmolality 298 mOsm/kg (285-295) H 01/15/23 17:29 Lactic Acid 1.5 mmol/L (0.5-2.2) 01/12/23 05:53 Calcium 8.5 mg/dL (8.5-10.5) 01/15/23 17:29 Iron 6 ug/dL (59-158) L 01/12/23 08:33 TIBC 110 mcg/dl 01/12/23 08:33 % Saturation 5.4 % (20-50) L 01/12/23 08:33 Unsat Iron Binding 104 ug/dL (112-347) L 01/12/23 08:33 Total Bilirubin 0.9 mg/dL (0.15-1.2) 01/15/23 06:04 Direct Bilirubin 0.40 mg/dL (0.00-0.30) H 01/12/23 05:53 Indirect Bilirubin 0.60 01/12/23 05:53 GGT 13 U/L (8-61) 01/12/23 05:53 AST 50 U/L (0-40) H 01/15/23 06:04 ALT 49 U/L (0-41) H 01/15/23 06:04 Alkaline Phosphatase 48 U/L (40-130) 01/15/23 06:04 Troponin T Baseline 97 ng/L (0-15) H 01/12/23 05:53 Troponin T 120 Minute 85.03 ng/L (0-15) H 01/12/23 08:33 Delta Troponin T -11.97 ABS# (0-10) L 01/12/23 08:33 Troponin T Hi Sens 6Hr 83.94 ng/L (0-15) H 01/12/23 11:26 Troponin T Hi Sens 6Hr Delta -13.06 ng/L (0-12) L 01/12/23 11:26 C-Reactive Protein 329.4 mg/L (0.0-4.9) H 01/12/23 08:33 NT-Pro-B Natriuret Pep 5639 pg/mL (0-450) H 01/12/23 05:53 Total Protein 4.7 g/dL (6.6-8.7) L 01/15/23 06:04 Albumin 2.0 g/dL (3.5-5.2) L 01/15/23 06:04 Globulin 2.7 g/dL (1.3-4.6) 01/15/23 06:04 Triglycerides 82 mg/dL (0-150) 01/12/23 05:53 Cholesterol 93 mg/dL (0-200) 01/12/23 05:53 LDL Cholesterol, Calc 14 mg/dL (50-129) L 01/12/23 05:53 HDL Cholesterol 63 mg/dL (60-100) 01/12/23 05:53 LDL/HDL Ratio 0.22 RATIO (0.00-3.22) 01/12/23 05:53 Cholesterol/HDL Ratio 1.48 mg/dL (1.0-5.00) 01/12/23 05:53 Lipase 6 U/L (13-60) L 01/12/23 05:53 Vitamin B12 870 pg/mL (232-1245) 01/12/23 08:33 Folate 19.0 ng/mL (4.5-32.2) 01/12/23 08:33 Procalcitonin > 100.00 ng/mL (0-0.5) H 01/12/23 05:53 TSH 1.54 uIU/mL (0.27-4.20) 01/12/23 05:53 Random Cortisol 36.19 ug/dL (2.47-19.5) H 01/12/23 05:53 Urine Color Yellow (Yellow) 01/12/23 01:41 Urine Appearance Sl hazy (CLEAR) A 01/12/23 01:41 Urine pH 7 (5-7) 01/12/23 01:41 Ur Specific [place] 1.010 (1.005-1.030) 01/12/23 01:41 Urine Protein 3+ (Negative) H 01/12/23 01:41 Urine Glucose (UA) Norm (Normal) 01/12/23 01:41 Urine Ketones 1+ (Negative) H 01/12/23 01:41 Urine Blood 3+ (Negative) H 01/12/23 01:41 Urine Nitrate Negative (Negative) 01/12/23 01:41 Urine Bilirubin Neg (Negative) 01/12/23 01:41 Urine Urobilinogen Neg mg/dL (Negative) 01/12/23 01:41 Ur Leukocyte Esterase 2+ (Negative) H 01/12/23 01:41 Urine RBC 15-25 /hpf (0-2) H 01/12/23 01:41 Urine WBC 10-15 /hpf (0-5) H 01/12/23 01:41 Ur Squamous Epith Cells 0-4 /hpf (0-5) H 01/12/23 01:41 Calcium Oxalate Crystal 10-15 /hpf H 01/12/23 01:41 Amorphous Sediment Not Reportable 01/12/23 01:41 Urine Bacteria 2+ /hpf (NONE) H 01/12/23 01:41 Hyaline Casts 5-10 /lpf H 01/12/23 01:41 Urine Mucus 2+ /hpf 01/12/23 01:41 Nasal Influ A H1 2008 PCR Not detected (NOT DETECT) 01/12/23 12:55 Random Vancomycin < 4.0 ug/mL (20.0-40.0) L 01/13/23 04:57 Adenovirus (PCR) Not detected (NOT DETECT) 01/12/23 12:55 C. pneumoniae DNA (PCR) Not detected (NOT DETECT) 01/12/23 12:55 Coronavirus 229E (PCR) Not detected (NOT DETECT) 01/12/23 12:55 Human Metapneumovir PCR Not detected (NOT DETECT) 01/12/23 12:55 Influenza A (H1) PCR Not detected (NOT DETECT) 01/12/23 12:55 Influenza A (H3) PCR Not detected (NOT DETECT) 01/12/23 12:55 Influenza Type A (PCR) Not detected (NOT DETECT) 01/12/23 12:55 Influenza Type B (PCR) Not detected (NOT DETECT) 01/12/23 12:55 M. pneumoniae (PCR) Not detected (NOT DETECT) 01/12/23 12:55 Parainfluenza 1 (PCR) Not detected (NOT DETECT) 01/12/23 12:55 Parainfluenza 2 (PCR) Not detected (NOT DETECT) 01/12/23 12:55 Parainfluenza 3 (PCR) Not detected (NOT DETECT) 01/12/23 12:55 Parainfluenza 4 (PCR) Not detected (NOT DETECT) 01/12/23 12:55 RSV Type A (PCR) Not detected (NOT DETECT) 01/12/23 12:55 RSV Type B (PCR) Not detected (NOT DETECT) 01/12/23 12:55 Entero/Rhino (PCR) Not detected (NOT DETECT) 01/12/23 12:55 SARS-CoV-2 (PCR) Not detected (NOT DETECT) 01/12/23 12:55 Vitals Last Vital Signs Temp 98.3 F 01/16/23 04:00 Pulse 82 01/16/23 07:17 Resp 16 01/16/23 07:17 BP 141/71 01/16/23 06:11 Pulse Ox 94 01/16/23 07:17 O2 Del Method Room Air 01/16/23 07:17 O2 Flow Rate 96 01/15/23 19:51 Discharge Plan Discharge Patient Disposition: Home Health Service Condition: Stable Prescriptions: New amlodipine 10 mg Tablet 5 mg PO DAILY 30 Days Qty: 30 0RF pantoprazole 40 mg Tablet,Delayed Release (Dr/Ec) 40 mg PO DAILY Qty: 30 0RF finasteride 5 mg Tablet 5 mg PO BEDTIME Qty: 30 0RF levofloxacin 500 mg tablet 500 mg PO Q24H 5 Days Qty: 5 0RF Continued ascorbate calcium (vitamin C) 500 mg tablet 1,000 mg PO DAILY calcium carb-D3-mag [id number] [phone] du-dchp-hc-mg tablet 1 tab PO DAILY Rx Instructions: administer with a meal alpha lipoic acid 200 mg capsule 200 mg PO DAILY arginine (L-arginine) 500 mg capsule 500 mg PO DAILY oxycodone-acetaminophen 5-325 mg tablet 1 - 2 tab PO Q4H PRN (Reason: pain) 7 Days Qty: 40 0RF omega-3 fatty acids 1,000 mg Capsule 1,000 mg PO BID tamsulosin 0.4 mg capsule 0.8 mg PO DAILY diclofenac sodium 75 mg tablet,delayed release (DR/EC) 75 mg PO Q12H PRN (Reason: pain) Qty: 20 0RF Discontinued hydrocodone-acetaminophen 5-325 mg tablet 1 - 2 tab PO .Q4-6H PRN (Reason: Pain) prednisone 20 mg tablet 40 mg PO DAILY Discharge Orders: Discharge Order (Routine); Ordered 01/16/23 Ordered By: Rich Hughes Referrals: [facility] ([facility]) [Outside] Aravind Martin [Primary Care Provider] - 1 week ([facility] will contact you to schedule an follow-up appointment within 1 week. If you haven't heard from them by Tuesday. Please call ) Emanuel Rivera DO [Physician] - 4-7 days ([facility] has been contacted with your appointment information. They should contact you within 24 hours. If you haven't herad from them within that time frame. Please call ) Humza Blakely MD [Physician] - 7-10 days ([facility] has been contacted with your appointment information. They will contact you within 24 hours. If you haven't herad from them within that time frame. Please call ) Discharge Diet: Cardiac Discharge Activity: Resume usual activity and Increase activity as tolerated Patient Instructions: Finasteride (By mouth) (Propecia, Proscar), Amlodipine (By mouth), Levofloxacin (By mouth) (Levaquin, Levaquin Leva-svitlana), Pantoprazole (By mouth) (Protonix), Acute Kidney Injury (DC), Hyponatremia (DC), DASH Eating Plan (DC), Opioid Safety, Pneumonia Stoplight Activity Restrictions/Additional Instructions: Amlodipine is a blood pressure medication 5 mg daily. Take Levaquin which is the antibiotic once daily for next 5 days. Please follow-up with Dr. Blakely within next 1 week for urinary retention and possible voiding trial. Please follow-up with Dr. Rivera onset appointment for follow-up on your recent back surgery. Please follow-up with a primary care provider within next 1 week for repeat BMP. Discharge Attestations Time Spent in Discharge Care*: greater than 30 min Specific Discharge Activities: educating patient, educating and/or supporting family/caregiver, discussing with pcp/other providers, discussing with [employer]/social workers/dc planners, documenting/other paperwork and evaluating patient/reviewing data Status at Discharge: Cognitive status at discharge: mildly impaired cognition, Behavioral status at discharge: cooperative, Functional status at discharge: independent ambulation, Overall status at discharge: patient is back to baseline Quality Metrics Clinical Quality Measures [ No reported AMI, CVA or VTE this stay] Coding Level of Care Code 14037 Total time (in minutes) for Discharge: 60 Diagnoses Septic shock A41.9; R65.21 UTI (urinary tract infection) N39.0 Pneumonia J18.9 Acute renal failure N17.9 Hyponatremia E87.1 Hyperbilirubinemia E80.6 Acute encephalopathy G93.40 Lactic acidosis E87.20
== END 2023-01-16 01:15 | disposition home health service (06) | DRG 871 ==
LOC: ER 02:24 → ICU 05:11 → CSU 17:32
PROVIDERS: Admitting Provider Family Medicine; Emergency Provider Emergency Medicine; PCP Family Medicine; Visit Provider Student in an Organized Health Care Education/Training Program
DX: A41.9 Sepsis, unspecified organism (principal); G93.41 Metabolic encephalopathy; R65.21 Severe sepsis with septic shock; J69.0 Pneumonitis due to inhalation of food and vomit; T83.511A Infection and inflammatory reaction due to indwelling urethral catheter, initial encounter; N17.9 Acute kidney failure, unspecified; E87.20 Acidosis, unspecified; E87.1 Hypo-osmolality and hyponatremia; R17 Unspecified jaundice; Y73.8 Miscellaneous gastroenterology and urology devices associated with adverse incidents, not elsewhere classified; B96.5 Pseudomonas (aeruginosa) (mallei) (pseudomallei) as the cause of diseases classified elsewhere; Z79.891 Long term (current) use of opiate analgesic; M48.061 Spinal stenosis, lumbar region without neurogenic claudication; R53.82 Chronic fatigue, unspecified; N40.1 Benign prostatic hyperplasia with lower urinary tract symptoms; R33.8 Other retention of urine; F17.210 Nicotine dependence, cigarettes, uncomplicated; I73.9 Peripheral vascular disease, unspecified; I95.9 Hypotension, unspecified; E86.0 Dehydration; M79.89 Other specified soft tissue disorders; R19.7 Diarrhea, unspecified; I10 Essential (primary) hypertension
CPT/HCPCS: 36415; 51702; 51798; 70450; 71045; 71250; 74176; 80048; 80053; 80061; 80202; 81001; 82247; 82248; 82274; 82533; 82607; 82746; 82977; 83036; 83540; 83550; 83605; 83630; 83690; 83880; 84145; 84443; 84484; 85025; 85378; 86140; 86403; 87040; 87070; 87077; 87086; 87186; 87205; 87449; 87486; 87493; 87506; 87581; 87633; 87641; 92523; 92610; 93005; 93306; 93970; 94640; 94664; 96365; 96367; 96372; 96376; 97110; 97161; 97530; 99285; C9113; J0456; J0696; J1644; J1650; J2250; J2543; J3010; J3370; J7030; J7050; J7608; J7626

== ENCOUNTER → 2023-01-20 11:11 | Outpatient (BNVA) | payer MEDICARE, SELFPAY | PROVIDERS: PCP Family Medicine; Visit Provider Orthopaedic Surgery | DX: Z47.89 Encounter for other orthopedic aftercare (principal) | CPT/HCPCS: 73502; 99024; 99204 ==

== ENCOUNTER 2023-02-04 11:41 | Outpatient (CLI) | payer MEDICARE, MEDICAID, SELFPAY ==
--- NOTE | 2023-02-04 12:00 | MR_ITS ---
WS: [id number] MRI LUMBAR SPINE NONCONTRAST HISTORY: Low back pain. Prior surgery December 2022. COMPARISON: 11/29/2022 TECHNIQUE: Sagittal and axial multisequence imaging is submitted. Mild central cervical stenosis at C4-5 and C5-6. Mild anterior wedging of T3. New edema within the an terior T3 vertebral body. Abnormal signal throughout the T7 vertebral body. Similar to the prior stud y with mild anterior wedging. Prior vertebroplasty at T7. Straightening of the normal lumbar lordosis. Disc spaces are mildly desiccated but otherwise maintain ed. No acute fractures. Recent postsurgical changes are noted in the paravertebral soft tissues at L3-4 and L4-5, greater on the LEFT. Conus terminates normally at L1. L1-L2: Facet arthropathy. No stenosis. L2-L3: Mild annular disc bulging encroaching upon the subarticular recesses. Motion artifact. No sign ificant stenosis. L3-L4: Diffuse annular disc bulging and osteophytic ridging. Disc is asymmetric extending to the RIGH T. RIGHT foraminal disc protrusion. Impingement upon the ventral thecal sac moderate central and bila teral subarticular recess stenosis. Bilateral foraminal stenosis, RIGHT greater than LEFT. New LEFT h emilaminectomy defect. L4-L5: Diffuse annular disc bulging asymmetric to the LEFT. LEFT foraminal disc protrusion. Marked li gamentum flavum and facet arthritis. Severe central, bilateral subarticular recess and moderate rené inal stenosis. New LEFT hemilaminectomy defect. L5-S1: Mild disc bulging with bilateral facet joint arthritis. Moderate LEFT and mild RIGHT foraminal stenosis. Disc and osteophyte encroachment upon the LEFT S1 nerve root. Similar to the prior study. Atherosclerosis aorta. Bones are osteopenic. Again noted is the enlarged prostate gland which was pre viously described. MR/MR lumbar spine wo con* [id number] IMPRESSION: 1. Status post LEFT hemilaminectomy defects at L3-4 and L4-5. New since 023. Appropriate postoperative changes. 2. Moderate central, bilateral subarticular recess and foraminal stenosis, RIG HT greater than LEFT at L3-4. 3. Severe central, bilateral subarticular recess and moderate foraminal stenos is at L4-5. 4. Moderate LEFT and mild RIGHT foraminal stenosis at L5-S1 with disc osteophy te encroachment upon the LEFT S1 nerve root. 5. Prior vertebroplasty at T7.
--- NOTE | 2023-02-04 12:45 | MR_ITS ---
WS: [id number] MRI PELVIS without CONTRAST. COMPARISON: None Multiplanar, multisequence imaging is performed without contrast. No sacral fracture. No insufficiency fracture. No fusion across the SI joints or erosions. Small area of abnormal signal involving the superior femoral head. Mild bilateral joint space narrowing of each hip. No effusion. No destructive bone lesions or evidence for metastatic disease. Urinary bladder is only minimally distended but also displaced. Prostate gland is markedly enlarged m easuring 5.1 x 4.5 x 5.7 cm. Prostate encroaches into the urinary bladder. No free fluid in the pelvi s or adenopathy identified. Postsurgical changes are noted in the lower lumbar spine on the LEFT at L4-5. L3 level is not include d on this pelvis exam. MR/MR pelvis wo con* [id number] IMPRESSION: 1. No sacral fracture. No insufficiency fracture. 2. Mild bilateral hip joint narrowing with sclerosis involving the superior RI GHT hip, not typical for osteonecrosis at this time. 3. Markedly enlarged heterogeneous prostate gland. 4. No adenopathy or free fluid.
== END 2023-02-04 11:42 | disposition home or self-care (01) ==
PROVIDERS: PCP Family Medicine; Visit Provider Orthopaedic Surgery
DX: M48.061 Spinal stenosis, lumbar region without neurogenic claudication (principal); M54.50 Low back pain, unspecified; M25.559 Pain in unspecified hip; M25.78 Osteophyte, vertebrae; N40.0 Benign prostatic hyperplasia without lower urinary tract symptoms; Z98.890 Other specified postprocedural states; R93.7 Abnormal findings on diagnostic imaging of other parts of musculoskeletal system
CPT/HCPCS: 72148; 72195; 73502; 81003; 87086; 99024; 99204

== ENCOUNTER → 2023-02-10 08:49 | Outpatient (BNVA) | payer MEDICARE, MEDICAID, SELFPAY | PROVIDERS: PCP Family Medicine; Visit Provider Orthopaedic Surgery | DX: M48.062 Spinal stenosis, lumbar region with neurogenic claudication (principal) | CPT/HCPCS: 99024 ==

== ENCOUNTER → 2023-02-17 13:59 | Outpatient (BNVA) | payer MEDICARE, MEDICAID, SELFPAY | PROVIDERS: PCP Family Medicine; Visit Provider Urology | DX: N40.1 Benign prostatic hyperplasia with lower urinary tract symptoms (principal); R33.8 Other retention of urine; N13.8 Other obstructive and reflux uropathy; N99.89 Other postprocedural complications and disorders of genitourinary system | CPT/HCPCS: 51798; 81003; 99213 ==

== ENCOUNTER → 2023-02-18 11:52 | Outpatient (BNVA) | payer MEDICARE, MEDICAID, SELFPAY | PROVIDERS: PCP Family Medicine; Visit Provider Family Medicine | DX: Z01.818 Encounter for other preprocedural examination (principal) | CPT/HCPCS: 80048; 85025 ==

== ENCOUNTER 2023-02-25 15:55 | Observation (INO) | payer MEDICARE, MEDICAID, SELFPAY ==
[2023-02-17 13:16] VITALS: BMI 18.6
--- NOTE | 2023-02-17 13:34 | ANES.PREANE2 ---
Pre-Anesthetic Assessment Height/Weight: Height 1.57 m Weight 46.266 kg Operation Date: 02/25/23 11:20 Proposed Procedures p L 3/4,L 4/5 Lumbar Spine Decompression,65722,M48.062(Not Applicable) - Emanuel Rivera, Familial anesthetic complications: None Social Tobacco and No alcohol Exam alert, oriented x 3, clear to auscultation bilaterally and regular rate & rhythm Airway Mallampati: Class III Dentition: false Pulmonary None reported Other Pertinent Information post op urinary retention severe, which resulted in UTI, sepsis, a fall, and aspiration pneumonia- patient says he's had problems with this even before surgery. He saw Dr. Blakely and is supposed to see him in 30 minutes. Currently unsure if urinary retention was related to or exacerbated by surgery. Urge getting Dr. Blakely's recommendations and or clearance before proceeding with repeat back surgery in case the two are interrelated. Medications/Allergies Home Medications Medication Instructions Recorded Confirmed Last Taken Type alpha lipoic acid 200 mg capsule 200 mg PO DAILY 04/22/21 02/17/23 02/17/23 08:00 History arginine (L-arginine) 500 mg 500 mg PO DAILY 04/22/21 02/17/23 02/17/23 08:00 History capsule ascorbate calcium (vitamin C) 500 1,000 mg PO DAILY 04/22/21 02/17/23 02/17/23 08:00 History mg tablet calcium carb-vit L5-[id number]-rrri 1 tab PO DAILY 04/22/21 02/17/23 02/17/23 08:00 History 333 mg-200 unit-133 mg-5 mg tablet diclofenac sodium 75 mg 75 mg PO Q12H PRN pain #20 tabs 11/01/22 02/17/23 02/17/23 08:00 Rx tablet,delayed release tamsulosin 0.4 mg capsule 0.8 mg PO DAILY 11/01/22 02/17/23 02/17/23 08:00 History omega-3 fatty acids 1,000 mg 1,000 mg PO BID 01/12/23 02/17/23 02/17/23 08:00 History capsule pantoprazole 40 mg tablet,delayed 40 mg PO DAILY #30 tabs 01/16/23 02/17/23 Unknown Rx release prednisone 20 mg tablet 20 mg PO DAILY #15 tabs 01/20/23 02/17/23 Unknown Rx diazepam 5 mg tablet (Valium) 5 mg PO DAILY PRN anxiety 7 days 01/25/23 02/17/23 02/17/23 08:00 Rx #7 tabs oxycodone-acetaminophen 5 mg-325 1 - 2 tab PO Q4H PRN pain 7 days 01/25/23 02/17/23 Unknown Rx mg tablet #40 tabs finasteride 5 mg tablet 5 mg PO BID 02/17/23 02/17/23 02/17/23 08:00 History methenamine hippurate 1 gram 1 g PO BID Recurrent UTI 02/17/23 02/17/23 02/17/23 08:00 History tablet (Hiprex) Allergies Allergy/AdvReac Type Severity Reaction Status Date / Time No Known Allergies Allergy Verified 02/17/23 13:06 [facility] Anesthesia Medical History Acute urinary retention Change in bowel habits Chronic fatigue Insomnia Spinal stenosis of lumbar region Surgical History H/O rotator cuff surgery RIGHT History of colonoscopy with polypectomy (~1997) Family History Denies family history of Diabetes CAD (coronary artery disease) Hyperlipidemia Cancer Hypertension Social History Smoking and tobacco status: current every day smoker cigarettes Packs smoked per day: 0.5 Alcohol intake: current Alcohol intake frequency: few times a month Substance/Drug Use: never Desire information about substance/drug rehabilitation?: No Marital status: Current occupational status: retired Current gender identity: Male Data Anesthesia Cardiac Studies: Echocardiogram 01/12/23 Cardiac Event Monitor 06/21/22
[2023-02-25] VITALS (20 sets, daily range): BP systolic 67–150; BP diastolic 46–83; PULSE 50–90; RESP 14–18; TEMP 36.2–36.8; O2SAT 92–98
--- NOTE | 2023-02-25 | XR_ITS ---
WS: [id number] XR lumbar spine 1V [id number] REASON FOR EXAM: Decompression L3-4 and L4-5 FINDINGS: Surgical instrument overlying the right L3-L4 interspace. Surgical instrument overlying the right elbow for L5 disc space. XR/XR lumbar spine 1V [id number] IMPRESSION: Lumbar localization since surgery as above.
--- NOTE | 2023-02-25 08:02 | W.PM.OPSUD ---
Surgery/Procedure H&P Update DATE OF PROCEDURE: February 25, 2023 DATE H&P PERFORMED: 02/10/23 H&P UPDATE INFORMATION: I have reviewed H&P completed within last 30 days, I have examined patient prior to procedure and No changes to prior documentation PREOP DIAGNOSIS: Lumbar stenosis with neurogenic claudication PLANNED PROCEDURE: Operation Date: 02/25/23 09:30 Proposed Procedures p L 3/4,L 4/5 Open Lumbar Spine Decompression,51773,M48.062(Not Applicable) - Emanuel Rivera DO
[2023-02-25] MEDS: sodium chloride 0.9% 1,000 ML 30 ML IV (08:24)
[2023-02-25] MEDS: ceFAZolin 2,000 MG in sodium chloride 0.9% (plus) 50 ML 100 MG IV ×2 (08:46→17:32)
[2023-02-25] MEDS: lidocaine-epi 1% 20 mL INJ INJECTION (09:12)
[2023-02-25] MEDS: vancomycin 1,000 MG SDV 1000 MG XX (09:41)
--- NOTE | 2023-02-25 10:32 | P.OP_ITS ---
Operative Report Date of procedure: February 25, 2023 Pre-op diagnosis: Preop Diagnosis Lumbar stenosis with neurogenic claudication Post-op diagnosis: same Procedure done: 1. L3/4 laminectomy with partial facetectomies 2.L4/5 laminectomy with partial facetectomies Surgeon: Emanuel Rivera Digital Content Marketing Manager: none Estimated blood loss (mL): 50 Procedure: 1. L3/4 laminectomy with partial facetectomies 2.L4/5 laminectomy with partial facetectomies Was brought to the operative suite after undergoing anesthesia was placed in the prone position. All areas of pressure well-padded. Patient was prepped and draped normal sterile fashion. Patient had previous mill invasive at L3-4 and L4-5 decompressions on the left. The same incision was used dissection was made down subperiosteally along the lamina out to the facets. This was done at L3-4 and L4-5 levels. The retractors were placed and the microscope was brought in. The previous laminectomy site was identified at L3-4. The curved curette was used to undermine the previous laminotomy site. And high-speed bur was used to take down the lamina as well as the medial aspect of facet joint. This was done bilaterally. The medial aspect of facet joint taken down with Kerrison rongeur and the lamina was taken down on both the left and the right side. In the medial aspect of both the left and the right facet at L3-4 were taken down. The scar tissue that was previous there was peeled off with a pituitary and curved curette. And then the L3 nerve was traced out the L3-4 foramen. The L4 nerve transfer on the L4 pedicles. Attention was then brought to the L4-5 level. Again the previous laminotomy site was identified undermined with a curved curette. High-speed bur was used to take down the lamina and medial aspect of facet joints bilaterally. The Kerrison rongeur was used to complete the laminectomy as well as take down the medial aspect of the facet joints bilaterally. The 2 doing curved curette used to lock the previous scar tissue. The L4 nerve traced out the L4-5 foramen bilaterally and the L5 nerve was traced around the L5 pedicle. Wounds were irrigated deep drain was placed and wound was closed in layered fashion with 0 Vicryl 2-0 Vicryl and Monocryl suture. Sterile dressings were applied patient was transferred to the PACU in stable condition
--- NOTE | 2023-02-25 10:46 | ANE.PACU2 ---
Inpatient post-anesthesia follow up: Vital signs: Temperature 97.4 F Pulse Rate 72 Respiratory Rate 16 Blood Pressure 150/66 Pulse Oximetry 96 Oxygen Delivery Me thod Room Air Oxygen Flow Rate Fraction of Inspir ed Oxygen Hydration adequate: Yes Nausea and vomiting: No Pain level: 2 Mental status: Baseline
[2023-02-25] MEDS: fentaNYL 50 mcg/mL INJ 2mL IVP (11:04)
[2023-02-25] MEDS: ketorolac 30 mg/mL INJ IVP ×2 (12:31→21:55)
[2023-02-25] MEDS: lactated ringers 1,000 ML 90 ML IV (17:31)
[2023-02-25] MEDS: sodium chloride 0.9% 500 ML 999 ML IV (20:27)
[2023-02-25 20:31] LABS: Hematocrit 33.7 % (42.0-52.0); Hemoglobin 10.8 g/dL (11.7-16.6)
[2023-02-25] MEDS: omega-3 fatty acids 1,000 mg Capsule 1000 MG PO (21:50)
[2023-02-25] MEDS: finasteride 5 mg Tablet PO (21:50)
--- NOTE | 2023-02-25 23:20 | PC.NURSE ---
At 1999 patients bp was 67/46, Patient was asymptomatic, Dr. Rivera was notified and ordered a 500cc ns bolus and stat H&H. Post bolus bp is 100/58.
[2023-02-26] VITALS: BP 110/64; PULSE 56; RESP 16; TEMP 36.9; O2SAT 97
[2023-02-26] MEDS: ceFAZolin 2,000 MG in sodium chloride 0.9% (plus) 50 ML 100 MG IV ×2 (01:06→08:52)
[2023-02-26 03:30] VITALS: BP 102/59; PULSE 66; RESP 16; TEMP 36.9; O2SAT 91
[2023-02-26] MEDS: lactated ringers 1,000 ML 90 ML IV (05:15)
[2023-02-26] MEDS: ketorolac 30 mg/mL INJ IVP (05:25)
[2023-02-26 06:00] VITALS: BP 98/52
[2023-02-26 07:46] VITALS: BP 108/55; PULSE 56; RESP 18; TEMP 36.7; O2SAT 94
--- NOTE | 2023-02-26 08:56 | PM.PN ---
Subjective Subjective: Patient is in bed pain is controlled. At this point he has not worked with physical therapy. Plan will be if he can get up with therapy and does okay he can go home. We will plan on seeing him in a week. Vitals/I&O/Wt Last Vital Signs Temp 98.1 F 02/26/23 07:46 Pulse 56 L 02/26/23 07:46 Resp 18 02/26/23 07:46 BP 108/55 02/26/23 07:46 Pulse Ox 94 02/26/23 07:46 O2 Del Method Room Air 02/26/23 03:30 02/25/23 02/26/23 02/26/23 22:59 06:59 14:59 Intake Total 1410 / 1460 1550 / 3010 Output Total 165 / 215 260 / 475 Balance 1245 / 1245 1290 / 2535 Physical Exam Narrative: Drain had 60 out of it plan will be to pull the drain. Resting in bed comfortably Data 02/25/23 20:25 A&P Assessment and plan (1) Encounter for postoperative care: Patient postop day 1 from a lumbar decompression. This point we will get him up therapy if he does okay with therapy he can go home. And we will see him back in a week. This . Attestations Medical Necessity Statement*: Pain control Coding Level of Care Code Acute Code for Chg Fwd Diagnoses Encounter for postoperative care Z48.89
[2023-02-26] MEDS: omega-3 fatty acids 1,000 mg Capsule 1000 MG PO (08:58)
[2023-02-26] MEDS: tamsulosin 0.4 mg Capsule 0.8 MG PO (08:58)
[2023-02-26] MEDS: predniSONE 20 mg Tablet PO (08:58)
[2023-02-26] MEDS: pantoprazole DR 40 mg Tablet PO (08:58)
[2023-02-26] MEDS: docusate sodium 100 mg Capsule PO (08:58)
--- NOTE | 2023-02-26 09:34 | PC.PHAR ---
pt states he no longer takes his otc medications pt states if he was taking some otc meds its nothing that would mess with his other meds so pt states to just put hes taking no otc medications-pts family states the pts amlodipine 10mg take 5mg daily filled 01/17/23 30d/s was dced-pt states he no longer takes oxycodone-acetaminophen 5-325mg 1-2 tabs q4h prn ext shows last filled 12/22/22 30d/s-finasteride 5mg bid was entered on pts med list ext doesnt show when last filled [facility] [phone] not open on saturdays pt states he is unsure if he takes or not, took off med list since ext doesnt show filled-
[2023-02-26 09:45] VITALS: BP 111/58
[2023-02-26] MEDS: HYDROcodone-acetaminophen 5-325 mg Tablet PO (09:54)
--- NOTE | 2023-02-26 11:01 | PC.NURSE ---
Verbal order from Dr. Rivera to pull hemovac. Intact and patient tolerated well.
== END 2023-02-26 11:10 | disposition home or self-care (01) ==
LOC: MEDSURG 16:57
PROVIDERS: Admitting Provider Orthopaedic Surgery; PCP Family Medicine; Visit Provider Orthopaedic Surgery
PROC: (CPT 63005; principal; 2023-02-25 09:30)
DX: M48.062 Spinal stenosis, lumbar region with neurogenic claudication (principal); Z79.52 Long term (current) use of systemic steroids; Z87.440 Personal history of urinary (tract) infections; F17.210 Nicotine dependence, cigarettes, uncomplicated
CPT/HCPCS: 63047; 63048; 36415; 72020; 76000; 85014; 85018; 97161; G0378; J0690; J1100; J1885; J2405; J2704; J2710; J3010; J3370; J3490; J7030; J7040; J7120; J7512

== ENCOUNTER → 2023-03-03 10:38 | Outpatient (BNVA) | payer MEDICARE, MEDICAID, SELFPAY | PROVIDERS: PCP Family Medicine; Visit Provider Orthopaedic Surgery | DX: Z48.89 Encounter for other specified surgical aftercare (principal) | CPT/HCPCS: 99024 ==

== ENCOUNTER → 2023-04-12 10:44 | Outpatient (BNVA) | payer MEDICARE, MEDICAID, SELFPAY | PROVIDERS: PCP Family Medicine; Visit Provider Physician Assistant | DX: Z47.89 Encounter for other orthopedic aftercare | CPT/HCPCS: 99024 ==

== ENCOUNTER → 2023-05-10 10:40 | Outpatient (BNVA) | payer MEDICARE, MEDICAID, SELFPAY | PROVIDERS: PCP Family Medicine; Visit Provider Orthopaedic Surgery | DX: Z47.89 Encounter for other orthopedic aftercare (principal) | CPT/HCPCS: 99024 ==

== ENCOUNTER 2023-06-02 06:00 | Outpatient (RCR) | payer MEDICARE, MEDICAID, SELFPAY | END 2023-06-11 23:59 | disposition home or self-care (01) | LOC: MPT 06:00 | PROVIDERS: Visit Provider Orthopaedic Surgery | DX: M54.50 Low back pain, unspecified (principal) | CPT/HCPCS: 97110; 97140; 97162; G0283 ==

== ENCOUNTER 2023-06-12 06:00 | Outpatient (RCR) | payer MEDICARE, MEDICAID, SELFPAY | END 2023-06-23 23:59 | disposition home or self-care (01) | LOC: MPT 06:00 | PROVIDERS: Visit Provider Orthopaedic Surgery | DX: M54.50 Low back pain, unspecified (principal) | CPT/HCPCS: 97140; G0283 ==